=== PATIENT | female | born 1945 | race Caucasian/White ===

== ENCOUNTER → 2023-09-02 06:24 | Day surgery (SDC) | payer OTHER, SELFPAY | LOC: GI 06:24 | PROVIDERS: ATTENDING PHYSICIAN Internal Medicine Gastroenterology; FAMILY PHYSICIAN Family Medicine | DX: D50.0 Iron deficiency anemia secondary to blood loss (chronic) (principal); K57.30 Diverticulosis of large intestine without perforation or abscess without bleeding; K64.0 First degree hemorrhoids; R12 Heartburn; K44.9 Diaphragmatic hernia without obstruction or gangrene; K31.7 Polyp of stomach and duodenum; K22.2 Esophageal obstruction; K31.89 Other diseases of stomach and duodenum; K29.50 Unspecified chronic gastritis without bleeding | CPT/HCPCS: 45378; 43239; 88305; 88342 ==

== ENCOUNTER → 2023-10-04 10:50 | Outpatient (REF) | payer OTHER, SELFPAY | LOC: RAD 10:50 | PROVIDERS: ATTENDING PHYSICIAN Family Medicine | DX: Z13.820 Encounter for screening for osteoporosis (principal); M85.89 Other specified disorders of bone density and structure, multiple sites; Z78.0 Asymptomatic menopausal state | CPT/HCPCS: 77080 ==

== ENCOUNTER → 2023-11-15 13:19 | Outpatient (REF) | payer OTHER, SELFPAY | LOC: RAD 13:19 | PROVIDERS: ATTENDING PHYSICIAN Family Medicine | DX: J45.40 Moderate persistent asthma, uncomplicated (principal); J45.901 Unspecified asthma with (acute) exacerbation | CPT/HCPCS: 71046 ==

== ENCOUNTER 2023-12-02 11:17 | Outpatient (RCR) | payer OTHER, SELFPAY | END 2023-12-02 23:59 | disposition home or self-care (01) | LOC: RPT 11:17 | PROVIDERS: ATTENDING PHYSICIAN Surgery; FAMILY PHYSICIAN Family Medicine | DX: I97.2 Postmastectomy lymphedema syndrome (principal); D05.92 Unspecified type of carcinoma in situ of left breast; L90.5 Scar conditions and fibrosis of skin | CPT/HCPCS: 97110; 97140; 97162; 97535 ==

== ENCOUNTER → 2023-12-12 10:19 | Outpatient (REF) | payer OTHER, SELFPAY | LOC: RAD 10:19 | PROVIDERS: ATTENDING PHYSICIAN Physician Assistant; FAMILY PHYSICIAN Family Medicine | DX: R05.9 Cough, unspecified (principal) | CPT/HCPCS: 71250 ==

== ENCOUNTER 2023-12-25 11:55 | Outpatient (RCR) | payer OTHER, SELFPAY | END 2023-12-25 23:59 | disposition home or self-care (01) | LOC: RPT 11:55 | PROVIDERS: ATTENDING PHYSICIAN Surgery; FAMILY PHYSICIAN Family Medicine | DX: D05.92 Unspecified type of carcinoma in situ of left breast (principal); Z73.6 Limitation of activities due to disability; L90.5 Scar conditions and fibrosis of skin | CPT/HCPCS: 97110; 97140; 97535 ==

== ENCOUNTER 2024-01-09 12:01 | Outpatient (RCR) | payer OTHER, SELFPAY | END 2024-01-09 23:59 | disposition home or self-care (01) | LOC: RPT 12:01 | PROVIDERS: ATTENDING PHYSICIAN Surgery; FAMILY PHYSICIAN Family Medicine | DX: I97.2 Postmastectomy lymphedema syndrome (principal); D05.92 Unspecified type of carcinoma in situ of left breast; Z73.6 Limitation of activities due to disability; L90.5 Scar conditions and fibrosis of skin | CPT/HCPCS: 97110; 97140 ==

== ENCOUNTER 2024-01-14 02:54 | Inpatient (IN) | payer OTHER, SELFPAY ==
[2024-01-13 19:20] VITALS: BP 171/92
[2024-01-13 19:42] LABS: % Basophils 1.4 % (0-2); % Eosinophils 2.4 % (0-6); % Immature Granulocytes 0.4 % (0-0.5); % Lymphocytes 22.8 % (20.5-51.1); % Monocytes 8.4 % (1.7-9.3); % Neutrophils 64.6 % (42.2-75.2); Absolute Basophils 0.1 10^3/uL (0-0.2); Absolute Eosinophils 0.2 10^3/uL (0-0.7); Absolute Lymphocytes 1.8 10^3/uL (1.2-3.4); Absolute Monocytes 0.7 10^3/uL (0.1-0.6); Absolute Neutrophils 5.2 10^3/uL (1.4-6.5); Hematocrit 39.4 % (37.0-47.0); Hemoglobin 12.6 g/dL (12.0-16.0); Mean Corpuscular Hgb 28.9 pg (27.0-31.0); Mean Corpuscular Volume 90.4 fL (81.0-99.0); Mean Platelet Volume 8.9 fL (7.4-10.4); Nucleated Red Blood Cells % 0 %; Platelet Count 256 10^3/uL (130-400); Red Blood Cell Count 4.36 10^6/uL (4.20-5.40); Red Cell Dist. Width 15.2 % (11.5-14.5)
[2024-01-13 19:53] LABS: ALT (SGPT) 22 U/L (0-35); AST (SGOT) 35 U/L (14-36); Albumin 4.4 g/dl (3.5-5.0); Alkaline Phosphatase 82 U/L (38-126); Blood Urea Nitrogen 13 mg/dl (7-17); Calcium 9.7 mg/dl (8.4-10.2); Carbon Dioxide 28 mmol/L (22-30); Chloride 104 mmol/L (98-107); Glucose 102 mg/dl (70-99); Potassium 4.3 mmol/L (3.5-5.1); Sodium 139 mmol/L (135-145); Total Bilirubin 0.4 mg/dl (0.2-1.3); Total Protein 6.9 g/dl (6.3-8.2); eGFR > 60.00
[2024-01-13 20:04] LABS: NT-proBNP 95.6 pg/ml; Troponin I < 0.012 ng/ml
[2024-01-13 21:00] VITALS: BP 141/77
--- NOTE | 2024-01-13 22:26 | ED.GENMED ---
History of Present Illness
General
Chief Complaint: Breathing Problem
Source: patient
Exam Limitations: none
Time Seen by Provider: 01/13/24 22:14
Nursing documentation reviewed up to this point in time: agreed with
History of Present Illness
History of Present Illness:
78-year-old female with a past medical history of asthma, hyperlipidemia, SVT status post ablation, GERD and hiatal hernia, prior history of breast cancer who presents to the emergency department for evaluation of leg swelling. Patient reports
onset of symptoms about a week ago and have been persistent since that time although she says today slightly better than they have been recently. While her legs are swollen she denies any pain in the legs and has not noticed any redness. She says
that she called her primary doctor to be evaluated for this issue and was referred to the ER to be evaluated instead. In addition to bilateral leg swelling she says that she feels she is more short of breath than usual over the past week�she
reports that she feels winded with exertion. She has a chronic cough she says no worse than usual. She denies any chest pain. She denies any GI issues aside from her chronic GERD. She denies any fevers or chills.
Past History
Past History
ED Past Medical History: Asthma, Cancer and Other (Asthma, GERD, lumbar radiculitis)
ED Past Surgical History: Other (lumpectomy)
Patient has exhibited threatening behavior?: No
PSI?: No
Social History
Tobacco: Non-smoker
Alcohol: Occasional
Personal:
Living: with family
Family History
Family History: Negative Diabetes, Hypertension or CAD
Review of Systems
Review of Systems
All Other Systems: ROS reviewed and negative except as documented in HPI and ROS
Constitutional: Reports fatigue; Denies fever or chills
Respiratory: Reports cough and trouble breathing
Cardiac: Denies chest pain or palpitations
ABD/GI: Denies abdominal pain, nausea, vomiting or diarrhea
: Denies flank pain
Musculoskeletal: Reports edema; Denies muscle pain, muscle stiffness, neck pain or back pain
Neurological: Denies dizzy or headache
Phy Exam
Physical Exam
Physical Exam:
General: Awake, alert, oriented x3; no acute distress
Head: Normocephalic, atraumatic
Eyes: Conjunctiva normal
Throat: Airway intact, handling secretions
Neck: Trachea midline, no JVD
Lungs: Faint scattered wheezing and occasional cough; normal pulse ox on room air, normal respiratory rate
Heart: Regular rate and rhythm, no murmurs, gallops, or rubs appreciated
Abd: Soft, non distended, nontender
Neuro: No gross deficits
Skin: no rash
Extremities: Patient has +1 edema in the lower extremities bilaterally, no erythema or warmth of the extremities, no calf tenderness or palpable cords; good pulses in all extremities
Scores
Heart Failure Risk
Heart Failure Risk Score: Not Applicable
Heart Score for Chest Pain Patients
STEMI patient?: Not applicable
Withdrawal Assessment of Alcohol
Withdrawal Assessment Completed?: Not applicable
Course
Orders/Labs/Results
Orders:
Orders
01/13/24 19:23
ECG [Electrocardiogram (*1)] Urgent
Reason for Study: Shortness of Breath
Other Reason for Exam: pedal edema
01/13/24 19:24
EKG- Treatment ONCE
01/13/24 19:27
Complete Blood Count/With Diff Urgent
Comprehensive Metabolic Panel Urgent
NT-proBNP Urgent
Troponin I Urgent
01/13/24 22:25
US Periph Venous LOWER Ext Alberto Urgent
Comment:
Reason For Exam: b/l leg swelling x 1 week
01/13/24 22:26
CR Chest - 2 Views Urgent
Comment:
Reason For Exam: sob
01/14/24 01:03
Furosemide [Lasix] 40 mg PO NOW STA
Abnormal Lab Results
01/13/24
19:27
MCHC 32.0 L g/dL
(33.0-37.0)
RDW 15.2 H %
(11.5-14.5)
Absolute Monos (auto) 0.7 H 10^3/uL
(0.1-0.6)
Glucose 102 H mg/dl
(70-99)
01/13/24 19:27
01/13/24 19:27
Vital Signs
Initial and Last Documented VS:
Initial Vital Signs
Temp Pulse Resp BP Pulse Ox
36.5 C 76 16 171/92 92
01/13/24 19:20 01/13/24 19:20 01/13/24 19:20 01/13/24 19:20 01/13/24 19:20
Last Documented Vital Signs
Temp Pulse Resp BP Pulse Ox
36.5 C 80 16 136/75 91
01/13/24 19:20 01/14/24 01:11 01/13/24 23:00 01/14/24 01:11 01/13/24 23:00
MDM/Problems Addressed
Differential Diagnosis Includes:
CHF, DVT, dependent edema
MDM/Problems Addressed:
78-year-old female presents to the emergency room for evaluation of bilateral leg swelling for the past week; she also noticed some mild increase shortness of breath over that period. Referred by PCP for evaluation. She was quite hypertensive in
triage but her blood pressure has normalized by my assessment. Low normal pulse ox, borderline respiratory rate. Rest of vitals normal. Physical exam as above. Clinically at least, concern for CHF. She had lab work sent in triage including a
CBC and a CMP which were unremarkable. She had a troponin and a BNP sent�troponin undetectable and BNP normal. EKG shows sinus rhythm no acute ischemic changes, no LVH. Will add chest x-ray as well as a lower extremity ultrasound to rule out DVT.
Will monitor on telemetry and reassess after the above.
DVT study was negative. Chest x-ray reviewed by me shows increased pulmonary vascular congestion and mild edema�symptomatology and exam seem consistent with CHF. New diagnosis. Clinical reassessment: BP normal at 136/75, pulse ox 91%, respiratory
rate 22. Will admit for continued workup, treat with IV Lasix. Has seen [facility] for cardiology in the past (for SVT and ablation). Discussed case with hospitalist.
Acute Exacerbation and/or Progression of Chronic Illness:
Acutely hypertensive which resolved without intervention; continue to monitor but no emergent antihypertensive treatment is indicated at present
Acute Exacerbation and/or Progression of Chronic Illness: HTN
*Radiology
Radiology exam reviewed: radiology read reviewed
*Pulse Oximetry
Patient hypoxic: no
*EKG
Interpreted by ED Provider?: Yes
Heart Rate: 71
Rate: normal
Rhythm: sinus
[place]: normal axis
Interval: normal interval
QRS Pattern: normal QRS
Ischemia: no ischemia
*Critical Care Note
Total Time (30-74mins, 75-104mins- exclusive of procedures): Not Applicable
Data Reviewed
Review of Other/Old Records Reveals: Labs and Records
Source: patient and records
Patient Management
Discussion with other providers: Hospitalist (Discussed with hospitalist)
Escalation/DeEscalation of care consider admission/obs:
Admission indicated
ED Attending Note
-
Portions of this chart may have been created with voice recognition software.� Occasional wrong word or��sound alike� substitutions may have occurred due to the inherent limitations of voice recognition software.
Discharge Plan
Departure
Patient Disposition: Admit
Date of Disposition: 01/14/24
Time of Disposition: 01:14
Admit to doctor: Moo
Presentation/result/management discussed w/ accepting MD/DO: Hospitalist
Discharge Problem:
CHF (congestive heart failure)
Prescriptions:
No Action
fluticasone propionate 1 SPRAY spray,suspension
2 spray intranasal DAILY
Patient Comments:
2 sprays each nostril
Centrum Silver 1 EACH tablet
1 ea PO DAILY
albuterol sulfate 1 PUFF HFA aerosol inhaler
2 puff inhalation Q4HPRN PRN (Reason: SOB)
azelastine 1 SPRAY aerosol,spray
2 spray intranasal BID
Patient Comments:
2 sprays each nostril
anastrozole 1 mg Tablet
1 mg PO QPM
famotidine 40 mg Tablet
40 mg PO HS
pantoprazole [Protonix] 40 mg Tablet,Delayed Release (Dr/Ec)
40 mg PO DAILY
montelukast 10 mg Tablet
10 mg PO QPM
rosuvastatin 5 mg Tablet
5 mg PO QPM
Trelegy Ellipta 200-62.5-25 mcg Blister With Device
1 inh INHALATION QPM
Cbd
2,500 mg PO TIDPRN PRN (Reason: pain)
cholecalciferol (vitamin D3) [Vitamin D3] 25 mcg (1,000 unit) Tablet
25 mcg PO DAILY
levocetirizine 5 mg Tablet
5 mg PO QPM
Saccharomyces boulardii [Florastor] 250 mg Capsule
250 mg PO DAILY
mupirocin 2 % ointment
1 applic intranasal BID Qty: 1 0RF
Rx Instructions:
Has from previous.
aspirin 325 mg Tablet
325 mg PO DAILY Qty: 30 0RF
Rx Instructions:
Take daily x4 weeks for blood clot prevention.
celecoxib 200 mg Capsule
200 mg PO DAILY Qty: 30 0RF
Rx Instructions:
Take with food.
DO NOT take within 2 hours of Aspirin post-surgery.
docusate sodium 100 mg Capsule
100 mg PO BID Qty: 30 0RF
dexamethasone 4 mg Tablet
4 mg PO Q12 Qty: 5 0RF
Rx Instructions:
Restart night of discharge and continue every 12 hours until finished.
Take with food.
lidocaine 4 % Adhesive Patch,Medicated
2 patch topical DAILY Qty: 30 0RF
Rx Instructions:
Over the counter. 12 hours on, 12 hours off.
Apply to sides of right hip. DO NOT place over incision.
magnesium hydroxide 400 mg/5 mL Suspension
30 ml PO DAILYPRN PRN (Reason: constipation) Qty: 355 0RF
Rx Instructions:
Add to bowel regimen of Colace and Senna if no bowel movement occurs within 2 days post-surgery.
sennosides [Senna Laxative] 8.6 mg Tablet
17.2 mg PO BID Qty: 30 0RF
ondansetron HCl 4 mg tablet
4 mg PO Q6H PRN (Reason: nausea and vomiting) Qty: 20 0RF
Rx Instructions:
Take 1/2 hour prior to Tramadol if experiencing recurrent nausea.
tramadol 50 mg tablet
50 mg PO Q6H PRN (Reason: moderate-severe pain) Qty: 30 0RF
Rx Instructions:
1 tab for moderate pain, 2 if severe.
Dx total joint. Ongoing therapy.
diazepam [Valium] 2 mg tablet
2 mg PO HS PRN (Reason: insomnia) Qty: 10 0RF
Rx Instructions:
Caution with Tramadol - can cause drowsiness.
Take only as needed/as directed.
acetaminophen 650 mg Tablet Extended Release
650 mg PO Q4HWA Qty: 60 0RF
Rx Instructions:
DO NOT exceed >4000 mg daily.
Referrals:
Sangeetha Brunner DO [Family Provider] -
Interventions
Interventions:
*Risk Screen - Suicide Last Done: 01/13/24 22:55
*General Assessment Last Done: 01/13/24 22:55
*Neglect/Abuse Screening Last Done: 01/13/24 22:55
ED- Fall Risk Assessment Last Done: 01/13/24 22:55
*ED COVID-19 Vaccine History Last Done: 01/13/24 22:55
ED- Cardiac Assessment Last Done: 01/13/24 22:55
ED- Pulmonary Assessment Last Done: 01/13/24 22:55
ED-Skin Assessment Last Done: 01/13/24 22:55
Discharge Date and Time
Print Language: MAORI
[2024-01-13 22:54] VITALS: BP 141/73
[2024-01-13 23:03] VITALS: BMI 28.3
[2024-01-14] VITALS (11 sets, daily range): BP systolic 104–150; BP diastolic 49–83; PULSE 84; O2SAT 92; BMI 27.7; BMI 27.6
[2024-01-14] MEDS: LASIX 40 MG PO (01:11)
--- NOTE | 2024-01-14 02:22 | HPS.HSE ---
Family Physician
-
Family Physician: Sangeetha Brunner
Chief Complaint
-
Cough, SOB, LE swelling
History of Present Illness
Patient is an 78y F with PMH significant for asthma, GERD, chronic cough and prior breast cancer who presents to ED complaining of worsening cough, SOB and new LE swelling over the past week. Patient notes that she has had a chronic cough x
years. She is followed by Asthma / Immunology regarding her asthma and by her PCP. She recently saw Pulmonary and a CT scan was ordered but has not yet returned to the office for review of those results. Patient states that over the past week she
has noticed swelling in her ankles which is quite unusual for her. She has gained about 5 lbs in the past month. Patient states that she has started to become SOB with climbing stairs - which is also unusual for her.
Patient denies any recent medication changes.
She denies fevers / chills, chest pain, palpitations, etc.
Patient notes that her chronic cough is typically productive of green - yellow mucus. She has paroxysms of cough that occasionally wake her at night and tend to be triggered by deep breathing, talking, laughing, etc.
Medical History
Past Medical History
Past Medical History: Reports Other
Additional Past Medical History:
Asthma / Allergies
GERD / Hiatal Hernia
Breast Cancer s/p Lumpectomy, Chemo and XRT
Skin Cancer
Polycystic Liver Disease
SVT s/p Ablation
Anxiety / Depression
Past Surgical History: Reports Other
Additional Past Surgical History:
Left TKA
Right ANNIKA
Left Lumpectomy
SVT Ablation
Cataracts
Social History
Tobacco: Former Smoker (Quit smoking in 1974. Approx 10 pack years total.)
Alcohol: None
Drug: None
Family History
Family History: Not pertinent
Allergies / Home Medications
Allergies reflects when Allergies were last updated in [facility].
Home Medications with original date entered in [facility]
Allergy/Medication List:
Allergies
Allergy/AdvReac Type Severity Reaction Status Date / Time
pollen extracts Allergy Intermediate SEASONAL Verified 01/13/24 19:23
ALLERGIES
Cats and dogs Allergy shortness Uncoded 01/13/24 19:23
of breath,
wheezing
Oxycodone AdvReac Severe nausea/vomi Uncoded 01/13/24 19:23
ting
Home Medications
fluticasone propionate 50 mcg/actuation nasal spray,suspension 2 spray intranasal DAILY 09/18/11
hxkkrphr-[id number] acid 0.4 mg-lycopene 300 mcg-lutein 250 mcg tablet (Centrum Silver) 1 ea PO DAILY 09/18/11
albuterol sulfate 90 mcg/actuation aerosol inhaler 2 puff inhalation Q4HPRN PRN SOB 01/13/16
azelastine 137 mcg (0.1 %) nasal spray 2 spray intranasal BID 01/13/16
anastrozole 1 mg tablet 1 mg PO DAILY 06/26/22
famotidine 40 mg tablet 40 mg PO HS 06/26/22
fluticasone fur. 200 mcg-umeclid 62.5 mcg-vilant 25 mcg inhalat.powder (Trelegy Ellipta) 1 inh inhalation QPM 06/26/22
montelukast 10 mg tablet 10 mg PO QPM 06/26/22
rosuvastatin 5 mg tablet 5 mg PO DAILY 06/26/22
cholecalciferol (vitamin D3) 25 mcg (1,000 unit) tablet (Vitamin D3) 25 mcg PO DAILY 07/16/22
Saccharomyces boulardii 250 mg capsule (Florastor) 250 mg PO DAILY 09/24/22
levocetirizine 5 mg tablet 5 mg PO QPM 09/24/22
acetaminophen 650 mg tablet,extended release 650 mg PO Q4HWA #60 tabs 10/16/22
docusate sodium 100 mg capsule 100 mg PO BID #30 caps 10/16/22
Saccharomyces boulardii 250 mg capsule (Florastor) 250 mg PO DAILY 01/14/24
biotin 1 mg capsule 1 mg PO DAILY 01/14/24
cholecalciferol (vitamin D3) 25 mcg (1,000 unit) tablet (Vitamin D3) 25 mcg PO DAILY 01/14/24
iron 50 mg iron tablet 1 tab PO DAILY 01/14/24
lansoprazole 30 mg capsule,delayed release 30 mg PO DAILY 01/14/24
lithium carbonate 300 mg tablet 300 mg PO BID 01/14/24
melatonin 3 mg tablet 3 mg PO HS 01/14/24
paroxetine HCl 10 mg tablet (Paxil) 10 mg PO DAILY 01/14/24
quetiapine 25 mg tablet 25 mg PO HS 01/14/24
quetiapine 50 mg tablet 50 mg PO HS 01/14/24
Review of Systems
-
History Source: Patient
A 12 point ROS was completed and negative except as noted: Yes
Constitutional: Reports Weight Gain and Fatigue; Denies Fever or Chills
EENT: Denies Sore Throat
Respiratory: Reports Cough and Trouble Breathing; Denies Hemoptysis
Cardiac: Denies Chest Pain or Palpitations
Abdomen/GI: Denies Abdominal Pain, Nausea, Vomiting or Diarrhea
: Denies Dysuria, Frequency or Flank Pain
Musculoskeletal: Reports Edema; Denies Joint Pain
Neurological: Reports Headache; Denies Dizzy
Psych: Denies Depression or Anxiety
Physical Exam
Vital Signs
Vital Signs
Temp Pulse Resp BP Pulse Ox
97.7 F 80 16 136/75 91
01/13/24 19:20 01/14/24 01:11 01/13/24 23:00 01/14/24 01:11 01/13/24 23:00
Physical Exam
General: Other (78y F in no acute distress.)
HEENT: Moist mucous membranes, PERRLA and Other (Neck supple.)
Respiratory: Other (Bibasilar rales. Pos cough paroxysms with deep inspiration.)
Cardiac: S1/S2 and Regular Rhythm; No Murmur
GI: Soft, Non Tender, Non Distended and Normal Bowel Sounds
Musculoskeletal: No Clubbing, No Cyanosis and Other (Trace pedal edema. )
Skin: Other (Scattered circular skin lesions diffusely over the arms and legs - patient states these are 'precancerous' lesions followed by Derm.)
Neuro: AO x 3
Laboratory Results
-
01/13/24 19:
01/13/24:
Laboratory Results
Total Bilirubin 0.4 mg/dl (0.2-1.3) 01/13/24:
AST 35 U/L (14-36) 01/13/24:
ALT 22 U/L (0-35) 01/13/24:
Alkaline Phosphatase 82 U/L (38-126) 01/13/24:
Troponin I < 0.012 ng/ml 01/13/24:
Impression/Plan
-
A/P: Patient is an 78y F with PMH significant for asthma, chronic cough, GERD and hiatal hernia who presents to ED complaining of new SOB and LE edema over the past week.
Acute CHF - Likely HFpEF
- Admit for further evaluation and treatment.
- Patient presents with new dyspnea, mild hypoxemia, LE edema and weight gain over the past week.
- Symptoms seem c/w CHF - I suspect due to underlying primary lung disease (see below).
- IV Lasix given in the ED - follow for effect.
- Check Echo for further evaluation.
- Follow I/Os, daily weights, etc.
- Address underlying lung disease as noted below.
Bronchiectasis / Chronic Cough
- Chronic cough x years and recent increase in symptoms.
- CT scan done 12/12/23 shows [id number] formations, ground glass opacities, etc consistent with inflammatory or atypical infectious process (TRACEE, etc).
- Pulmonary evaluation for additional recommendations.
- Check sputum AFB if able.
- Continue nebs / mucolytics / etc.
Asthma / Environmental Allergies
- No significant wheezing appreciated on exam.
- Suspicious for underlying chronic infectious or inflammatory process as noted above.
- Continue inhaled medications.
History of Breast Cancer
- s/p lumpectomy as well as adjuvant chemo and XRT.
- ? degree of chronic lung issues related to XRT treatments.
- Continue anastrazole.
GERD / Hiatal Hernia
- Stable. Continue acid suppression regimen.
- Speech eval to rule out chronic / silent aspiration.
Anxiety / Depression
- Stable. Continue current medications.
DVT Prophylaxis: Lovenox
Code Status: Full
[2024-01-14 06:21] LABS: Hematocrit 38.2 % (37.0-47.0); Hemoglobin 12.4 g/dL (12.0-16.0); Mean Corp Hgb Conc. 32.5 g/dL (33.0-37.0); Mean Corpuscular Volume 89.5 fL (81.0-99.0); Mean Platelet Volume 8.9 fL (7.4-10.4); Platelet Count 249 10^3/uL (130-400); Red Blood Cell Count 4.27 10^6/uL (4.20-5.40); Red Cell Dist. Width 15.5 % (11.5-14.5)
[2024-01-14 06:50] LABS: Blood Urea Nitrogen 12 mg/dl (7-17); Calcium 9.6 mg/dl (8.4-10.2); Carbon Dioxide 25 mmol/L (22-30); Chloride 105 mmol/L (98-107); Estimated Creatinine Clearance 79 ml/min; Glucose 114 mg/dl (70-99); Sodium 142 mmol/L (135-145); eGFR > 60.00
[2024-01-14] MEDS: SYMBICORT 160/4.5 MCG INHALER 2 PUFF INH ×2 (07:17→19:47)
[2024-01-14] MEDS: SPIRIVA RESPIMAT 2.5 MCG 2 PUFF INH (07:17)
[2024-01-14] MEDS: VENTOLIN NEBULES 2.5 MG INH ×4 (07:18→19:47)
[2024-01-14] MEDS: PAXIL 10 MG PO (07:48)
[2024-01-14] MEDS: ARIMIDEX 1 MG PO (07:48)
[2024-01-14] MEDS: ESKALITH REGULAR RELEASE 300 MG PO ×2 (07:48→21:37)
[2024-01-14] MEDS: CRESTOR 5 MG PO (07:48)
[2024-01-14] MEDS: PROTONIX 40 MG PO (07:48)
[2024-01-14] MEDS: TYLENOL 650 MG PO ×2 (07:53→12:21)
--- NOTE | 2024-01-14 09:38 | CON.PUL ---
Consultation
Consultation Request
Date/Time Consultation Requested: 01/14/2024-9 AM
Date/Time Consultation Performed: 01/14/2024-9:30 AM
Requesting Provider: Hospitalist
Performing Provider: Dr. Kumar
Reason for Consultation: Shortness of breath and cough
Medical History
-
Chief Complaint: Shortness of breath and cough
History of Present Illness:
78-year-old female patient with long history of asthma, 02-crvi-avbd smoking history quit 50 years ago, GERD, chronic cough and prior breast cancer who presented with increasing cough, shortness of breath and increased lower extremity swelling felt
to have some CHF and bronchitis-pulmonary consulted for mucus production and shortness of breath 01/14/2024.. The patient states that her shortness of breath has improved with diuresis. Her leg swelling is improved. Nebulizers have helped her
wheezing. She has less cough. She has chronic mucus production of dark yellow and occasionally green sputum production. She did not complain of fevers, chills or night sweats. She did not complain any chest pain, pleurisy, hemoptysis, abdominal
pain, and admits to significant leg swelling which is improved as well. She also has allergies and mild postnasal drip.
Past Medical History
Past Medical History: None (Asthma. Allergies. GERD. Hiatal hernia. Skin cancer. Polycystic liver. SVT status post ablation. Anxiety. Depression. Breast cancer-lumpectomy/chemo/XRT. Left TKA. Right ANNIKA. Cataract.)
Social History
Tobacco: Former Smoker ([id number]-velh quit 1974)
Alcohol: None
Drug: None
Living: With Family
Occupational Exposures: No known asbestos exposure
Environmental Exposures: No known tuberculosis exposure
Family History
Family History: Other (Mother-COPD. Father-lung cancer)
Allergies / Home Medications
Allergies
Allergy/AdvReac Type Severity Reaction Status Date / Time
pollen extracts Allergy Intermediate SEASONAL Verified 01/13/24 19:23
ALLERGIES
Cats and dogs Allergy shortness Uncoded 01/13/24 19:23
of breath,
wheezing
Oxycodone AdvReac Severe nausea/vomi Uncoded 01/13/24 19:23
ting
Home Medications
�Medication �Instructions �Recorded �Confirmed �Last Taken �Type
fluticasone propionate 50 2 spray intranasal DAILY 09/18/11 01/14/24 10/14/22 20:00 History
mcg/actuation nasal
spray,suspension
ndlwnnqz-ulr-gumer acid 0.4 1 ea PO DAILY 09/18/11 01/14/24 10/10/22 History
mg-lycopene 300 mcg-lutein 250 mcg
tablet (Centrum Silver)
albuterol sulfate 90 mcg/actuation 2 puff inhalation Q4HPRN PRN SOB 01/13/16 01/14/24 07/15/22 17:00 History
aerosol inhaler
azelastine 137 mcg (0.1 %) nasal 2 spray intranasal BID 01/13/16 01/14/24 10/14/22 20:00 History
spray
anastrozole 1 mg tablet 1 mg PO DAILY 06/26/22 01/14/24 10/14/22 20:00 History
famotidine 40 mg tablet 40 mg PO HS 06/26/22 01/14/24 10/14/22 18:00 History
fluticasone fur. 200 mcg-umeclid 1 inh inhalation QPM 06/26/22 01/14/24 10/14/22 20:00 History
62.5 mcg-vilant 25 mcg
inhalat.powder (Trelegy Ellipta)
montelukast 10 mg tablet 10 mg PO QPM 06/26/22 01/14/24 10/14/22 20:00 History
rosuvastatin 5 mg tablet 5 mg PO DAILY 06/26/22 01/14/24 10/14/22 20:00 History
cholecalciferol (vitamin D3) 25 25 mcg PO DAILY 07/16/22 01/14/24 10/08/22 History
mcg (1,000 unit) tablet (Vitamin
D3)
Saccharomyces boulardii 250 mg 250 mg PO DAILY 09/24/22 01/14/24 10/14/22 09:00 History
capsule (Florastor)
levocetirizine 5 mg tablet 5 mg PO QPM 09/24/22 01/14/24 10/14/22 07:00 History
acetaminophen 650 mg 650 mg PO Q4HWA #60 tabs 10/16/22 01/14/24 10/13/22 Rx
tablet,extended release
docusate sodium 100 mg capsule 100 mg PO BID #30 caps 10/16/22 01/14/24 Unknown Rx
Saccharomyces boulardii 250 mg 250 mg PO DAILY 01/14/24 01/14/24 Unknown History
capsule (Florastor)
biotin 1 mg capsule 1 mg PO DAILY 01/14/24 01/14/24 Unknown History
cholecalciferol (vitamin D3) 25 25 mcg PO DAILY 01/14/24 01/14/24 Unknown History
mcg (1,000 unit) tablet (Vitamin
D3)
iron 50 mg iron tablet 1 tab PO DAILY 01/14/24 01/14/24 Unknown History
lansoprazole 30 mg capsule,delayed 30 mg PO DAILY 01/14/24 01/14/24 Unknown History
release
lithium carbonate 300 mg tablet 300 mg PO BID 01/14/24 01/14/24 Unknown History
melatonin 3 mg tablet 3 mg PO HS 01/14/24 01/14/24 Unknown History
paroxetine HCl 10 mg tablet (Paxil) 10 mg PO DAILY 01/14/24 01/14/24 Unknown History
quetiapine 25 mg tablet 25 mg PO HS 01/14/24 01/14/24 Unknown History
quetiapine 50 mg tablet 50 mg PO HS 01/14/24 01/14/24 Unknown History
Review of Systems
-
Unable to Obtain full review of systems at this time due to: Other (Per HPI)
Vitals / Labs / Diagnostic Testing
Vital Signs
Temp Pulse Resp BP Pulse Ox
98.7 F 91 20 135/81 97
01/14/24 07:15 01/14/24 07:24 01/14/24 07:24 01/14/24 07:15 01/14/24 07:24
Lab Data
01/14/24 05:47
01/14/24 05:47
Diagnostic Testing:
Physical Exam
-
Exam:
Well-nourished and well-developed in no apparent distress
HEENT-atraumatic, normocephalic
Neck-supple, no JVD, no bruit
Heart-regular rate and rhythm-no murmurs, rubs or gallops
Chest with diminished breath sounds, prolonged expiratory time, forced expiratory wheezes, rare crackles left greater than right base
Back without tenderness
Abdomen-soft, nontender, nondistended, no hepatosplenomegaly
Extremities-no cyanosis, clubbing, edema and good peripheral pulses
Integument-intact, no rashes, lesions or ecchymosis
Neurology-alert and oriented, nonfocal motor and sensory exam
Assessment
-
78-year-old female patient with long history of asthma, 94-pfyk-esbf smoking history quit 50 years ago, GERD, chronic cough and prior breast cancer who presented with increasing cough, shortness of breath and increased lower extremity swelling felt
to have some CHF and bronchitis-pulmonary consulted for mucus production and shortness of breath 01/14/2024.
CHF with preserved EF
Chronic cough/chronic bronchitis/bronchiectasis
Asthma-suspect moderate persistent with mild acute exacerbation
Abnormal CT akthk-npnd-tm-bud-consistent with atypical mycobacterial infection
Bronchiectasis with mucoid impaction
Mild hyperglycemia
Conditions present prior to admission:
Asthma-moderate persistent, no significant eosinophil elevation
Allergies.
GERD.
Hiatal hernia.
Skin cancer.
Polycystic liver.
SVT status post ablation.
Anxiety.
Depression.
Breast cancer-lumpectomy/chemo/XRT-2017
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 Right ANNIKA. Cataract-2014
Family history COPD-mother
Family history lung cancer-father
Plan
Respiratory decompensation likely CHF on top of chronic bronchitis/bronchiectasis/asthma
Supplemental oxygen as needed
Assess discharge supplemental oxygen needs prior to discharge
Incentive spirometry
Mucolytic's
Nebulizers-DuoNebs
Symbicort and Spiriva continue-on Trelegy as an outpatient
Mucus clearing devices
Incentive spirometry
Flutter
Add vest therapy
Continue Singulair and Zyrtec
Observe off steroids-if increased wheezing will initiate
Obtain previous allergy testing
Will obtain baseline eosinophil level, IgE level, ESR, gammaglobulin levels
Consider Biologics such as IL-5 inhibitors or IL/13 inhibitor in the outpatient setting if recurrent exacerbations requiring prednisone-reviewed with patient
Check sputum culture-including AFB and fungal
Currently observe off antibiotics-no leukocytosis, temperature, night sweats
Will strongly consider antibiotics based on culture results with bronchiectasis and suspected TRACEE
Eventually consider infectious disease consultation depending on culture results
Diuresis as tolerated
Diuresis note
Echocardiogram
Troponin negative
Consider cardiology evaluation
Monitor blood sugar
Insulin supplementation as needed
DVT prophylaxis-on Lovenox
GI prophylaxis-on pantoprazole and famotidine
Nutrition
Early mobilization
Patient had been following with Dr. River-allergy and immunology and referred to pulmonary recently-ideally would obtain allergy records
Patient has appointment 03/29 at 3 PM with PFTs-Dr. Loren Camacho
Diagnostic data:
Chest x-ray 04/15/2017-use right subclavian port, no pneumothorax, biapical scarring
Chest x-ray 02/04/2020-NAD
Chest x-ray 10/18/2021-NAD
CXR 11/15/2023: No acute disease. Moderate hiatal hernia, enlarged.
Chest x-ray 01/13/2024-NAD, moderate-sized hiatal hernia
CT chest 12/12/20239897-wwbw-up-bud opacifications throughout bilateral lungs with bibasilar bronchiectasis and mucoid impactions, apparent right subclavian artery and retroesophageal course and mild dilation of proximal subclavian artery, 2.8 cm
low-density lesion right thyroid lobe, moderate hiatal hernia
Lower extremity ultrasound 01/13/2024-no evidence for DVT in lower extremities bilaterally
Echo 05/16/2022: Small LV size. Normal systolic function. EF 63%. Mild concentric LVH.� An incidental finding noted on the subcostal view is that of a large sonolucent mass in the liver that was noted on's CAT scan in 2019
[place] 12/04/23: FVC 1.55/57%, FEV1 1.13/56%, ratio 73%, no significant BD response.� Suggestive of moderate restrictive pattern.
Data Reviewed
-
PFT: Report reviewed by me
EKG: Report reviewed by me
Radiology: Image personally visualized and interpreted and Report reviewed by me
CT Scan: Image personally visualized and interpreted and Report reviewed by me
Ultrasound: Report reviewed by me
Medical Tests (Nuc Med, Echo etc): Report reviewed by me
Labs: Labs reviewed by me
Old Records: Reviewed
Total Time Spent with Patient (in minutes): 65
--- NOTE | 2024-01-14 10:33 | PTOTSP ---
pt currently requires supervision to no assistance to complete simple ADLs, functional transfers, ambulation. pt demonstrates no acute OT needs at this time, will sign off.
--- NOTE | 2024-01-14 11:16 | CM ---
CM met with pt bedside
Pt resides with her spouse in a 2SH with 2 ALE
18 steps up to 2nd floor with landing [facility]
Pt is independent with her ADLs
Utilizes a [employer] PRN at night
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
Very pleasant and active in the community and gnosticism
Denies financial insecurities
PCP- Sangeetha Brunner
Rx- [facility]
VN recommended
Pt declined
May want to consider outpt on dc
Active at [facility]
Plan to follow up with pt closer to dc on outpt therapy
Of note per chart review, 201 admission Dec 2022 to [facility]
Will need thorough PASRR screen if SNF ends up needed on dc
Discharge Disposition- home, anticipate with outpt PT
--- NOTE | 2024-01-14 11:19 | PTOTSP ---
Acute Care Evaluation
Pt currently presents with clinical symptoms of pharyngoesophageal dysphagia characterized by delayed coughing/throat clearing with ingestion of both solids and liquids. Additionally, pt reports: she takes her protonix 1 hour prior to meals in the
morning and her famotidine at night consistently; sleeps with head raised 90 degrees; aware of food/drink items as well as behaviors that exacerbate her symptoms; tries her best to adhere to recommendations provided by previous GI doctors; had a
test completed that consisted of a probe being placed through her nose to the back of her throat for a day when she had to notate her meal times (pH probe?) and the information obtained revealed that her coughing was related to her reflux; she feels
like her reflux is NOT well managed and that it has gotten worse; she is aware that her hiatal hernia has also increased in size; she sometimes coughs so hard that she coughs up undigested food.
Recommendations:
- Continue with REGULAR SOLIDS, THIN LIQUIDS, and MEDS TOLERATED.
- General aspiration precautions.
- Reflux precautions: HOB upright for all PO intake and for at LEAST an hour after PO intake; small bites/sips; chew food thoroughly; alternate solids/liquids; avoid caffeine; avoid acidic foods/drinks.
- Consider GI consult for under-managed/worsened reflux symptoms with a reportedly increase in the size of her hiatal hernia, all of which have been previously reported to correlate with her coughing, thus placing her at an increased risk for
retrograde aspiration.
- P[employer] to f/u re: GI recommendations and to reinforce education about behavioral changes/compensatory strategies to reduce GERD occurrences and continue to protect her airway.
[2024-01-14] MEDS: ROBITUSSIN 200 MG PO ×3 (12:21→21:38)
[2024-01-14] MEDS: COLACE 100 MG PO ×2 (12:21→21:37)
[2024-01-14] MEDS: SINGULAIR 10 MG PO (17:12)
[2024-01-14] MEDS: ZYRTEC 5 MG PO (17:12)
[2024-01-14] MEDS: LOVENOX 40 MG SC (17:12)
[2024-01-14] MEDS: SEROQUEL 25 MG PO (17:12)
--- NOTE | 2024-01-14 17:32 | W.PN.HOSP.TC ---
Today's Communication/Plan
-
see plan
Assessment / Plan
Assessment / Plan
Impression:
Patient is an 78y F with PMH significant for asthma, chronic cough, GERD and hiatal hernia who presents to ED complaining of new SOB and LE edema over the past week.
Subjective dyspnea likely multifactorial.
Lower extremity edema.
Bronchiectasis
Chronic cough.
Asthma
GERD with hiatal hernia possibly contributing to chronic cough given persistent reflux.
History of breast carcinoma.
Anxiety/depression
Plan
Subjective dyspnea likely multifactorial in the patient with bronchiectatic disease
Less likely CHF.
Does not of lower extremity edema, although overall compensated volume status.
Chest x-ray with clear lung molina.
Pro CHF BNP within normal limits.
Echocardiogram with preserved biventricular function and no significant valvular abnormalities.
Status post single dose of Lasix in the ED on 01/13
Hold further diuresis
Monitor volume status closely
Bronchiectasis
Recent CT scan 12/12/2023 shows tree-in-bud formations, groundglass opacities
Chronic cough likely function of severe GERD and hiatal hernia with reflux.
Pulmonary evaluation pending.
Check sputum for AFB.
Continue nebs, mucolytic's, Acapella
Outpatient pulmonology follow-up.
Speech and swallow evaluation appreciated.
Continue acid suppression
History of Breast Cancer
- s/p lumpectomy as well as adjuvant chemo and XRT.
- ? degree of chronic lung issues related to XRT treatments.
- Continue anastrazole.
Anxiety / Depression
- Stable. Continue current medications.
DVT Prophylaxis: Lovenox
Code Status: Full
Anticipated Discharge: 24 - 48 hours
Subjective/Interval History
-
Date of Service: January 14, 2024
Objective Data
-
Labs:
Laboratory Results
01/14/24
05:47
WBC 9.0
Hgb 12.4
Hct 38.2
Plt Count 249
Sodium 142
Potassium 4.0
Chloride 105
Carbon Dioxide 25
BUN 12
Creatinine 0.6
Glucose 114 H
Calcium 9.6
Vital Signs:
Vital Signs
Temp Pulse Resp BP Pulse Ox
98.2 F 99 18 147/82 95
01/14/24 15:15 01/14/24 15:15 01/14/24 15:15 01/14/24 15:15 01/14/24 15:15
I&O
01/13/24 01/14/24 01/15/24
06:59 06:59 06:59
Intake Total 240 / 240 900 / 900
Output Total 250 / 250
Balance -10 / -10 900 / 900
Physical Exam
-
General: Well Developed and No Apparent Distress
HEENT: Normocephalic, Atraumatic and Moist Mucous Membranes
Respiratory: Clear to Auscultation
Cardiac: Regular Rhythm and S1/S2; Negative Murmur, Rub or Gallop
GI: Soft, Nontender, Nondistended and Normal Bowel Sounds; Negative Organomegaly
Rectal: Deferred by Provider
Musculoskeletal: No Clubbing, No Cyanosis and No Edema
Skin: Negative Rash
Neuro: Nonfocal/Grossly Intact
[2024-01-14] MEDS: OCEAN, SALINE MIST 1 SPRAYS NASAL (21:36)
[2024-01-14] MEDS: MELATONIN 3 MG PO (21:37)
[2024-01-14] MEDS: PEPCID 40 MG PO (21:37)
[2024-01-14] MEDS: SEROQUEL 50 MG PO (21:38)
[2024-01-15 03:20] VITALS: BP 127/56
[2024-01-15 06:00] VITALS: BMI 27.5
[2024-01-15 07:14] LABS: IgG 852 mg/dl (700-1600); IgM 93 mg/dl (40-230)
[2024-01-15 07:27] VITALS: BP 111/64
[2024-01-15 07:38] VITALS: BMI 27.5
[2024-01-15] MEDS: VENTOLIN NEBULES 2.5 MG INH ×4 (07:51→19:18)
[2024-01-15] MEDS: SPIRIVA RESPIMAT 2.5 MCG 2 PUFF INH (07:52)
[2024-01-15] MEDS: SYMBICORT 160/4.5 MCG INHALER 2 PUFF INH ×2 (07:52→19:18)
[2024-01-15 07:58] LABS: Erythrocyte Sed Rate 48 mm/hour (0-20)
--- NOTE | 2024-01-15 09:20 | W.PN.PUL.V3 ---
Today's Communication / Plan
-
Add intravenous Decadron-fairly rapid conversion to prednisone with taper
Check sputum cultures
Home nebulizers
Mucus clearing devices and mucolytic's
Assessment
-
78-year-old female patient with long history of asthma, 51-vkdj-fwnj smoking history quit 50 years ago, GERD, chronic cough and prior breast cancer who presented with increasing cough, shortness of breath and increased lower extremity swelling felt
to have some CHF and bronchitis-pulmonary consulted for mucus production and shortness of breath 01/14/2024.
Chronic cough/chronic bronchitis/bronchiectasis
Asthma-suspect moderate persistent with mild acute exacerbation
Abnormal CT nktai-mvvh-fn-bud-consistent with atypical mycobacterial infection
CHF with preserved EF-mild
Bronchiectasis with mucoid impaction
Mild hyperglycemia
Conditions present prior to admission:
Asthma-moderate persistent, no significant eosinophil elevation
Allergies.
GERD.
Hiatal hernia.
Skin cancer.
Polycystic liver.
SVT status post ablation.
Anxiety.
Depression.
Breast cancer-lumpectomy/chemo/XRT-2016
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 Right ANNIKA. Cataract-2014
Family history COPD-mother
Family history lung cancer-father
Plan
Respiratory status slowly improving-persistent cough-minimally productive at this point
Supplemental oxygen as needed-currently on room air
Incentive spirometry encouraged
Mucolytic's intensified
Vufugmoizw-QbyVsnm-dgq likes nebulizers and home nebulizers could be arranged as an outpatient
Symbicort and Spiriva continue-on Trelegy as an outpatient
Mucus clearing devices
Incentive spirometry encouraged
Flutter encouraged
Vest therapy twice daily
Continue Singulair and Zyrtec
Patient with expiratory wheezing on exam-add steroids intravenously-fairly rapid change to prednisone with taper
Obtain previous allergy testing performed by Dr. River
Eosinophils 01/13/2020 4-200
Will obtain baseline IgE level, ESR, gammaglobulin levels
ESR 01/15/2020 4-48
Consider Biologics such as IL-5 inhibitors or IL/13 inhibitor in the outpatient setting if recurrent exacerbations requiring prednisone-reviewed with patient
Sputum Gram stain and cultures 01/14/2024-AFB fungus-pending
Sputum culture 01/14/2024-few squamous epithelial cells, many WBCs, many gram-positive cocci, cultures pending
Currently observe off antibiotics-no leukocytosis, temperature, night sweats
Will strongly consider antibiotics based on culture results with bronchiectasis and suspected TRACEE, also sputum culture results
Eventually consider infectious disease consultation depending on culture results
Diuresis as tolerated
Monitor renal function, electrolytes, intake/output, lower extremity edema and weight
Replace electrolytes as needed
Echocardiogram 01/14/2024-EF 60-65%, PA systolic 30-35, no significant change from May 2022
Troponin negative
Monitor blood sugar
Insulin supplementation as needed
DVT prophylaxis-on Lovenox
GI prophylaxis-on pantoprazole and famotidine
Nutrition
Early mobilization
Patient feels nebulizers helping-can arrange for home nebulizers
Consider vest therapy as an outpatient as well
Patient had been following with Dr. River-allergy and immunology and referred to pulmonary recently-ideally would obtain allergy records
Patient has appointment 03/09/24 at 3 PM with PFTs-Dr. Loren Camacho-we will ask patient to be seen in a couple weeks after discharge
Diagnostic data:
Chest x-ray 04/15/2017-use right subclavian port, no pneumothorax, biapical scarring
Chest x-ray 02/04/2020-NAD
Chest x-ray 10/18/2021-NAD
CXR 11/15/2023: No acute disease. Moderate hiatal hernia, enlarged.
Chest x-ray 01/13/2024-NAD, moderate-sized hiatal hernia
CT chest 12/12/20234159-fglg-lm-bud opacifications throughout bilateral lungs with bibasilar bronchiectasis and mucoid impactions, apparent right subclavian artery and retroesophageal course and mild dilation of proximal subclavian artery, 2.8 cm
low-density lesion right thyroid lobe, moderate hiatal hernia
Lower extremity ultrasound 01/13/2024-no evidence for DVT in lower extremities bilaterally
Echo 05/16/2022: Small LV size. Normal systolic function. EF 63%. Mild concentric LVH.� An incidental finding noted on the subcostal view is that of a large sonolucent mass in the liver that was noted on's CAT scan in 2019
[place] 12/04/23: FVC 1.55/57%, FEV1 1.13/56%, ratio 73%, no significant BD response.� Suggestive of moderate restrictive pattern.
Subjective Data
-
Date of Service:
Date of Service: January 15, 2024
Chief Complaint: Pulmonary Follow Up and Dyspnea Follow Up
Subjective:
Feels a little better, still has some wheezing, still has some coughing, no chest pain or abdominal pain, mucus has decreased
Review of Systems
General: Other ( per HPI)
Objective Data
Data Reviewed
Vital Signs / I&O:
Vital Signs
Temp Pulse Resp BP Pulse Ox
97.5 F 80 18 111/64 92
01/15/24 07:27 01/15/24 08:12 01/15/24 08:12 01/15/24 07:27 01/15/24 08:12
Intake and Output
01/14/24 01/15/24 01/16/24
06:59 06:59 06:59
Intake Total 240 / 240 1020 / 1020
Output Total 250 / 250
Balance -10 -10 1020 / 1020
SaO2: 92
Physical Exam
General: Respiratory Distress (n) and Comfortable
HEENT: Normocephalic, Anicteric and Moist Mucous Membranes
Cardiovascular: Regular Rhythm and Murmur
Respiratory: Wheeze (Forced expiratory), Crackles (Rare right greater than left basilar f), Rhonchi (n), Non-Labored Respirations, Accessory Resp Muscle Use (n) and Stridor (n)
GI: Soft, Non Distended and Non Tender
Neurology: Awake, Alert and No Motor Deficits
Skin: Warm, Good Color, Cyanosis (n) and Jaundice (n)
Labs/Micro/Reports
Lab Data
01/14/24 05:47
01/14/24 05:47
Microbiology
01/14/24 13:14 Sputum Gram Stain - Preliminary
[2024-01-15 09:26] LABS: IgA 254 mg/dl (70-400)
[2024-01-15] MEDS: ARIMIDEX 1 MG PO (09:45)
[2024-01-15] MEDS: PAXIL 10 MG PO (09:45)
[2024-01-15] MEDS: PROTONIX 40 MG PO (09:46)
[2024-01-15] MEDS: CRESTOR 5 MG PO (09:46)
[2024-01-15] MEDS: ROBITUSSIN 200 MG PO ×4 (09:46→20:58)
[2024-01-15] MEDS: ESKALITH REGULAR RELEASE 300 MG PO ×2 (09:46→20:58)
[2024-01-15] MEDS: COLACE 100 MG PO ×2 (09:46→20:58)
--- NOTE | 2024-01-15 10:22 | CM ---
Maintained on IV steroids will transition to po at dc.
PT recommends VN . OT no skilled needs . Pt declined VN .
Pt requests out pt PT at dc.Will need MD script for out pt PT.
Family will drive her home.
PLAN Home no needs (Pt will set up out pt PT )
[2024-01-15 10:48] VITALS: BP 112/61
[2024-01-15] MEDS: DECADRON 4 MG IV ×2 (12:26→20:57)
[2024-01-15 15:11] VITALS: BP 112/65
--- NOTE | 2024-01-15 17:05 | W.PN.HOSP.TC ---
Today's Communication/Plan
-
Expectoration therapy.
Corticosteroids.
Increase activity.
Home O2 assessment
Discharge planing
Assessment / Plan
Assessment / Plan
Impression:
Patient is an 78y F with PMH significant for asthma, chronic cough, GERD and hiatal hernia who presents to ED complaining of new SOB and LE edema over the past week.
Subjective dyspnea likely multifactorial.
Lower extremity edema.
Bronchiectasis
Chronic cough.
Asthma
GERD with hiatal hernia possibly contributing to chronic cough given persistent reflux.
History of breast carcinoma.
Anxiety/depression
Plan
Subjective dyspnea likely multifactorial in the patient with bronchiectatic disease
Less likely CHF.
Does not of lower extremity edema, although overall compensated volume status.
Chest x-ray with clear lung molina.
Pro CHF BNP within normal limits.
Echocardiogram with preserved biventricular function and no significant valvular abnormalities.
Status post single dose of Lasix in the ED on 01/13
Hold further diuresis
Monitor volume status closely
Bronchiectasis
Recent CT scan 12/12/2023 shows tree-in-bud formations, groundglass opacities
Chronic cough likely function of severe GERD and hiatal hernia with reflux.
Pulmonary evaluation pending.
Check sputum for AFB.
Continue nebs, mucolytic's, Acapella
Initiated on IV steroids with plan to transition to oral taper over the next 24 hours
Outpatient pulmonology follow-up.
Speech and swallow evaluation appreciated.
Continue acid suppression
History of Breast Cancer
- s/p lumpectomy as well as adjuvant chemo and XRT.
- ? degree of chronic lung issues related to XRT treatments.
- Continue anastrazole.
Anxiety / Depression
- Stable. Continue current medications.
DVT Prophylaxis: Lovenox
Code Status: Full
Anticipated Discharge: 24 - 48 hours
Subjective/Interval History
-
Date of Service: January 15, 2024
Objective Data
-
Vital Signs:
Vital Signs
Temp Pulse Resp BP Pulse Ox
97.9 F 91 18 112/65 92
01/15/24 15:11 01/15/24 15:15 01/15/24 15:15 01/15/24 15:11 01/15/24 15:15
I&O
01/14/24 01/15/24 01/16/24
06:59 06:59 06:59
Intake Total 240 / 240 1020 / 1020 540 / 540
Output Total 250 / 250
Balance -10 / -10 1020 / 1020 540 / 540
Physical Exam
-
General: Well Developed and No Apparent Distress
HEENT: Normocephalic, Atraumatic and Moist Mucous Membranes
Respiratory: Clear to Auscultation
Cardiac: Regular Rhythm and S1/S2; Negative Murmur, Rub or Gallop
GI: Soft, Nontender, Nondistended and Normal Bowel Sounds; Negative Organomegaly
Rectal: Deferred by Provider
Musculoskeletal: No Clubbing, No Cyanosis and No Edema
Skin: Negative Rash
Neuro: Nonfocal/Grossly Intact
[2024-01-15] MEDS: LOVENOX 40 MG SC (17:12)
[2024-01-15] MEDS: SINGULAIR 10 MG PO (17:12)
[2024-01-15] MEDS: ZYRTEC 5 MG PO (17:12)
[2024-01-15] MEDS: SEROQUEL 25 MG PO (17:13)
[2024-01-15 18:35] VITALS: BP 129/73
[2024-01-15] MEDS: SEROQUEL 50 MG PO (20:58)
[2024-01-15] MEDS: MELATONIN 3 MG PO (20:58)
[2024-01-15] MEDS: PEPCID 40 MG PO (20:58)
[2024-01-15] MEDS: TYLENOL 650 MG PO (21:20)
[2024-01-15 23:35] VITALS: BP 110/63
[2024-01-16 03:05] VITALS: BP 141/80
[2024-01-16] MEDS: TYLENOL 650 MG PO (03:55)
[2024-01-16 06:00] VITALS: BMI 27.6
[2024-01-16 07:23] VITALS: BP 130/70
[2024-01-16] MEDS: VENTOLIN NEBULES 2.5 MG INH ×3 (07:58→15:41)
[2024-01-16] MEDS: SPIRIVA RESPIMAT 2.5 MCG 2 PUFF INH (07:58)
[2024-01-16] MEDS: SYMBICORT 160/4.5 MCG INHALER 2 PUFF INH (07:58)
[2024-01-16] MEDS: ESKALITH REGULAR RELEASE 300 MG PO (08:44)
[2024-01-16] MEDS: PROTONIX 40 MG PO (08:44)
[2024-01-16] MEDS: COLACE 100 MG PO (08:44)
[2024-01-16] MEDS: PAXIL 10 MG PO (08:44)
[2024-01-16] MEDS: ROBITUSSIN 200 MG PO ×2 (08:44→13:01)
[2024-01-16] MEDS: ARIMIDEX 1 MG PO (08:44)
[2024-01-16] MEDS: CRESTOR 5 MG PO (08:44)
--- NOTE | 2024-01-16 09:10 | W.PN.PUL3 ---
Today's Communication / Plan
-
Stable on RA, more productive cough noted, sputum negative to date
We discussed airway clearance at home
Can follow up in office for further steps, repeat PFTs
Discharge planning per team
Assessment
-
78-year-old female patient with long history of asthma, 36-jztc-yaak smoking history quit 50 years ago, GERD, chronic cough and prior breast cancer who presented with increasing cough, shortness of breath and increased lower extremity swelling felt
to have some CHF and bronchitis-pulmonary consulted for mucus production and shortness of breath 01/14/2024.
Chronic cough/chronic bronchitis/bronchiectasis
Asthma-suspect moderate persistent with mild acute exacerbation
Abnormal CT aikms-fwxt-mr-bud-consistent with atypical mycobacterial infection
CHF with preserved EF-mild
Bronchiectasis with mucoid impaction
Mild hyperglycemia
Conditions present prior to admission:
Asthma-moderate persistent, no significant eosinophil elevation
Allergies.
GERD.
Hiatal hernia.
Skin cancer.
Polycystic liver.
SVT status post ablation.
Anxiety.
Depression.
Breast cancer-lumpectomy/chemo/XRT-2016
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 Right ANNIKA. Cataract-2014
Family history COPD-mother
Family history lung cancer-father
Plan
Respiratory status slowly improving-persistent cough-minimally productive at this point
Supplemental oxygen as needed-currently on room air
Incentive spirometry encouraged
Mucolytic's intensified
Ayuuihodqm-MpbKene-zgs likes nebulizers and home nebulizers could be arranged as an outpatient
Symbicort and Spiriva continue-on Trelegy as an outpatient
Mucus clearing devices
Incentive spirometry encouraged
Flutter encouraged
Vest therapy twice daily
Continue Singulair and Zyrtec
Patient with expiratory wheezing on exam-add steroids intravenously-fairly rapid change to prednisone with taper
Obtain previous allergy testing performed by Dr. River
Eosinophils 01/13/2020 4-200
Will obtain baseline IgE level, ESR, gammaglobulin levels
ESR 01/15/2020 4-48
Consider Biologics such as IL-5 inhibitors or IL/13 inhibitor in the outpatient setting if recurrent exacerbations requiring prednisone-reviewed with patient
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
Sputum culture 01/14/2024-few squamous epithelial cells, many WBCs, many gram-positive cocci, cultures pending
Currently observe off antibiotics-no leukocytosis, temperature, night sweats
Will strongly consider antibiotics based on culture results with bronchiectasis and suspected TRACEE, also sputum culture results
Eventually consider infectious disease consultation depending on culture results
Diuresis as tolerated
Monitor renal function, electrolytes, intake/output, lower extremity edema and weight
Replace electrolytes as needed
Echocardiogram 01/14/2024-EF 60-65%, PA systolic 30-35, no significant change from May 2022
Troponin negative
Monitor blood sugar
Insulin supplementation as needed
DVT prophylaxis-on Lovenox
GI prophylaxis-on pantoprazole and famotidine
Nutrition
Early mobilization
Patient feels nebulizers helping-can arrange for home nebulizers
Consider vest therapy as an outpatient as well
Patient had been following with Dr. River-allergy and immunology and referred to pulmonary recently-ideally would obtain allergy records
Patient has appointment 03/09/24 at 3 PM with PFTs-Dr. Loren Camacho-we will ask patient to be seen in a couple weeks after discharge
Diagnostic Data:
Chest x-ray 04/15/2017-use right subclavian port, no pneumothorax, biapical scarring
Chest x-ray 02/04/2020-NAD
Chest x-ray 10/18/2021-NAD
CXR 11/15/2023: No acute disease. Moderate hiatal hernia, enlarged.
Chest x-ray 01/13/2024-NAD, moderate-sized hiatal hernia
CT chest 12/12/20232228-xpny-qf-bud opacifications throughout bilateral lungs with bibasilar bronchiectasis and mucoid impactions, apparent right subclavian artery and retroesophageal course and mild dilation of proximal subclavian artery, 2.8 cm
low-density lesion right thyroid lobe, moderate hiatal hernia
Lower extremity ultrasound 01/13/2024-no evidence for DVT in lower extremities bilaterally
Echo 05/16/2022: Small LV size. Normal systolic function. EF 63%. Mild concentric LVH.� An incidental finding noted on the subcostal view is that of a large sonolucent mass in the liver that was noted on's CAT scan in 2019
[place] 12/04/23: FVC 1.55/57%, FEV1 1.13/56%, ratio 73%, no significant BD response.� Suggestive of moderate restrictive pattern.
Subjective Data
-
Date of Service:
Date of Service: January 16, 2024
Chief Complaint: Pulmonary Follow Up and Dyspnea Follow Up
Subjective:
No new events, stable on RA
Able to cough with mucus now
Objective Data
Data Reviewed
Vital Signs / I&O / Oxygen:
Vital Signs
Temp Pulse Resp BP Pulse Ox
97.8 F 77 18 130/70 94
01/16/24 07:23 01/16/24 08:02 01/16/24 08:02 01/16/24 07:23 01/16/24 08:02
Intake and Output
01/15/24 01/16/24 01/17/24
06:59 06:59 06:59
Intake Total 1020 / 1020 540 / 540
Balance 1020 / 1020 540 / 540
SaO2 94
Physical Exam
General: Respiratory Distress (n) and Comfortable
HEENT: Normocephalic, Anicteric and Moist Mucous Membranes
Cardiovascular: Regular Rhythm and Murmur
Respiratory: Wheeze (Forced expiratory), Crackles (Rare right greater than left basilar f), Rhonchi (n), Non-Labored Respirations, Accessory Resp Muscle Use (n) and Stridor (n)
GI: Soft, Non Distended and Non Tender
Neurology: Awake, Alert and No Motor Deficits
Skin: Warm, Good Color, Cyanosis (n) and Jaundice (n)
Labs/Micro/Reports
Lab Data
01/14/24 05:47
01/14/24 05:47
Microbiology
01/14/24 13:14 Sputum Respiratory Culture - Preliminary
Usual Respiratory Alia
01/14/24 13:14 Sputum Gram Stain - Preliminary
[2024-01-16] MEDS: DECADRON 4 MG IV (10:48)
[2024-01-16] MEDS: FLUSH (NSS) 2 FLUSH IV (10:49)
[2024-01-16 11:02] VITALS: BP 128/77
--- NOTE | 2024-01-16 11:12 | CM ---
CM following re: discharger planning.
Reviewed pt's chart, met with pt.
Pt reports she feels she might be ready for discharge today. IMM reviewed, placed on chart, pt has a copy.
PT and OT evaluations noted - outpatient PT/OT recommended. pt is aware and she stated she was getting outpatient OT at outpatient therapy department and she will resume outpatient therapy at .
Please provide a script for outpatient PT/OT
D/C plna: home with outpatient PT/OT. Pt stated her will transport home.
[2024-01-16 13:33] VITALS: BP 145/87; PULSE 96; O2SAT 94
--- NOTE | 2024-01-16 14:56 | W.DS.TRANS ---
DC Summary - Marina Manager
-
Discharge Instructions:
Sleep Apnea Risk Low
Discharge Diagnosis/Procedures Subjective dyspnea likely multifactorial.
Lower extremity edema.
Bronchiectasis
Chronic cough.
Asthma
GERD with hiatal hernia possibly contributing to
chronic cough given persistent reflux.
History of breast carcinoma.
Anxiety/depression
Instructions: *PCP/Other Remediation Technician Heart Failure Instructions
Stand-Alone Forms:
Changes to Home Medications: Yes
Discharge Medications:
DC Medications w/original date entered in [employer]
fluticasone propionate 50 mcg/actuation nasal spray,suspension 2 spray intranasal DAILY 09/18/11
euznklvk-qpy-syinw acid 0.4 mg-lycopene 300 mcg-lutein 250 mcg tablet (Centrum Silver) 1 ea PO DAILY 09/18/11
albuterol sulfate 90 mcg/actuation aerosol inhaler 2 puff inhalation Q4HPRN PRN SOB 01/13/16
azelastine 137 mcg (0.1 %) nasal spray 2 spray intranasal BID Allergies 01/13/16
anastrozole 1 mg tablet 1 mg PO DAILY Hormonal Agent 06/26/22
famotidine 40 mg tablet 40 mg PO HS 06/26/22
fluticasone fur. 200 mcg-umeclid 62.5 mcg-vilant 25 mcg inhalat.powder (Trelegy Ellipta) 1 inh inhalation QPM 06/26/22
montelukast 10 mg tablet 10 mg PO QPM 06/26/22
rosuvastatin 5 mg tablet 5 mg PO DAILY 06/26/22
Saccharomyces boulardii 250 mg capsule (Florastor) 250 mg PO DAILY 09/24/22
levocetirizine 5 mg tablet 5 mg PO QPM 09/24/22
acetaminophen 650 mg tablet,extended release 650 mg PO Q4HWA #60 tabs 10/16/22
docusate sodium 100 mg capsule 100 mg PO BID #30 caps 10/16/22
biotin 1 mg capsule 1 mg PO DAILY Supplement 01/14/24
cholecalciferol (vitamin D3) 25 mcg (1,000 unit) tablet (Vitamin D3) 25 mcg PO DAILY 01/14/24
iron 50 mg iron tablet 1 tab PO DAILY 01/14/24
lansoprazole 30 mg capsule,delayed release 30 mg PO DAILY 01/14/24
lithium carbonate 300 mg tablet 300 mg PO BID 01/14/24
melatonin 3 mg tablet 3 mg PO HS 01/14/24
paroxetine HCl 10 mg tablet (Paxil) 10 mg PO DAILY 01/14/24
quetiapine 25 mg tablet 25 mg PO HS 01/14/24
quetiapine 50 mg tablet 50 mg PO HS 01/14/24
guaifenesin 100 mg/5 mL oral liquid 200 mg (10 mL) PO QID #1,500 mL 01/16/24
prednisone 10 mg tablet 10 mg PO DIRECTED #20 tabs 01/16/24
Home Medication Changes
Prednisone taper
Pending Results: No
[2024-01-16 15:27] VITALS: BP 126/69
[2024-01-17 00:53] LABS: IgE 37 kU/L (<=214)
[2024-01-17 04:54] LABS: IgG Subclass 1 465 mg/dL (240-1118); IgG Subclass 2 171 mg/dL (124-549); IgG Subclass 3 132 mg/dL (21-134); IgG Subclass 4 32 mg/dL (1-123)
== END 2024-01-16 17:50 | disposition home or self-care (01) | DRG 191 ==
LOC: 3 WEST ACU 02:54
PROVIDERS: Emergency Medicine; ADMITTING PHYSICIAN Hospitalist; ATTENDING PHYSICIAN Internal Medicine; EMERGENCY PHYSICIAN Emergency Medicine; FAMILY PHYSICIAN Family Medicine; OTHER PHYSICIAN Internal Medicine Critical Care Medicine
DX: J47.1 Bronchiectasis with (acute) exacerbation (principal); I50.30 Unspecified diastolic (congestive) heart failure; J45.31 Mild persistent asthma with (acute) exacerbation; I11.0 Hypertensive heart disease with heart failure; F32.A Depression, unspecified; J44.89 Other specified chronic obstructive pulmonary disease; K21.9 Gastro-esophageal reflux disease without esophagitis; K44.9 Diaphragmatic hernia without obstruction or gangrene; F41.9 Anxiety disorder, unspecified; E78.5 Hyperlipidemia, unspecified; R09.02 Hypoxemia; R60.0 Localized edema; R05.3 Chronic cough; R09.82 Postnasal drip; R73.9 Hyperglycemia, unspecified; Z96.652 Presence of left artificial knee joint; Z79.811 Long term (current) use of aromatase inhibitors; Z79.899 Other long term (current) drug therapy; Z85.828 Personal history of other malignant neoplasm of skin; Z86.79 Personal history of other diseases of the circulatory system; Z85.3 Personal history of malignant neoplasm of breast; Z87.891 Personal history of nicotine dependence; Z92.21 Personal history of antineoplastic chemotherapy; Z92.3 Personal history of irradiation; Z80.1 Family history of malignant neoplasm of trachea, bronchus and lung; Z82.5 Family history of asthma and other chronic lower respiratory diseases
CPT/HCPCS: 71046; 80048; 80053; 82784; 82785; 82787; 83880; 84484; 85025; 85027; 85652; 87015; 87070; 87116; 87205; 92610; 93005; 93306; 93970; 94640; 94667; 94669; 97116; 97162; 97165; 97530; 99285

== ENCOUNTER → 2024-05-07 10:54 | Outpatient (REF) | payer OTHER, SELFPAY | LOC: WDC 10:54 | PROVIDERS: ATTENDING PHYSICIAN Surgery; FAMILY PHYSICIAN Family Medicine | DX: Z12.31 Encounter for screening mammogram for malignant neoplasm of breast (principal) | CPT/HCPCS: 77063; 77067 ==

== ENCOUNTER → 2024-05-13 09:40 | Outpatient (REF) | payer OTHER, SELFPAY | LOC: HWRAD 09:40 | PROVIDERS: ATTENDING PHYSICIAN Internal Medicine; FAMILY PHYSICIAN Family Medicine | DX: J47.9 Bronchiectasis, uncomplicated (principal) | CPT/HCPCS: 71250 ==

== ENCOUNTER → 2024-06-12 11:20 | Outpatient (REF) | payer SELFPAY | LOC: HWRAD 11:20 | PROVIDERS: ATTENDING PHYSICIAN Family Medicine | DX: I25.10 Atherosclerotic heart disease of native coronary artery without angina pectoris (principal) | CPT/HCPCS: 75571 ==

== ENCOUNTER → 2024-06-29 10:33 | Outpatient (REF) | payer OTHER, SELFPAY | LOC: RAD 10:33 | PROVIDERS: ATTENDING PHYSICIAN Student in an Organized Health Care Education/Training Program; FAMILY PHYSICIAN Family Medicine | DX: M25.552 Pain in left hip (principal); S79.912A Unspecified injury of left hip, initial encounter | CPT/HCPCS: 73523 ==

== ENCOUNTER 2024-07-21 16:43 | Inpatient (IN) | payer OTHER, SELFPAY ==
[2024-07-21] VITALS (10 sets, daily range): BP systolic 113–143; BP diastolic 68–76; BMI 27.8
--- NOTE | 2024-07-21 12:04 | ED.GENMED ---
History of Present Illness
<Sandra Villasenor PA-C - Last Filed: 07/21/24 18:17>
General
Chief Complaint: Breathing Problem
Source: patient
Exam Limitations: none
Time Seen by Provider: 07/21/24 12:02
Nursing documentation reviewed up to this point in time: agreed with
History of Present Illness
History of Present Illness:
79-year-old male with a past medical history of bronchiectasis, CHF, asthma, hyperlipidemia who presents emergency department today with concerns of shortness of breath and cough for the past 6 days. Patient states that with her bronchiectasis she
has chronic shortness of breath she states it has gotten a lot worse and notes that her has been sick with similar symptoms. She states that her albuterol Hailer and DuoNeb treatments are not helping her asthma is a usually do. She denies
any fevers or chills. She does note some diarrhea as well as a decreased appetite. She denies abdominal pain, nausea, vomiting. She denies chest pain.
Past History
<Sandra Villasenor PA-C - Last Filed: 07/21/24 18:17>
Past History
ED Past Medical History: Asthma, Cancer and Other (Asthma, GERD, lumbar radiculitis)
ED Past Surgical History: Other (lumpectomy)
Patient has exhibited threatening behavior?: No
PSI?: No
Social History
Tobacco: Non-smoker
Alcohol: Occasional
Personal:
Living: with family
Family History
Family History: Negative Diabetes, Hypertension or CAD
Review of Systems
<Sandra Villasenor PA-C - Last Filed: 07/21/24 18:17>
Review of Systems
All Other Systems: ROS reviewed and negative except as documented in HPI and ROS
Phy Exam
<Sandra Villasenor PA-C - Last Filed: 07/21/24 18:17>
Physical Exam
Physical Exam:
General: Patient is in mild respiratory distress but non-toxic appearing
Skin: Warm and dry, no rashes or lesions
Head: Normocephalic, atraumatic
Eyes: Sclera non-icteric. EOMs intact.
Cardiac: Regular rate and rhythm, no murmurs
Peripheral Vascular: No lower extremity swelling or edema
Pulm: Tachypnea, hypoxia to 88% on room air, diffuse wheezing heard on exam
Abdomen: No abdominal tenderness to palpation
Neuro: CN II-XII intact, no focal neurologic deficits.
Psychiatric: Appropriate mood and affect.
Scores
<Sandra Villasenor PA-C - Last Filed: 07/21/24 18:17>
Heart Failure Risk
Heart Failure Risk Score: Not Applicable
Course
<Sandra Villasenor PA-C - Last Filed: 07/21/24 18:17>
Orders/Labs/Results
Orders:
Orders
07/21/24 11:46
EKG [Electrocardiogram (*1)] Urgent
Reason for Study: Shortness of Breath
EKG- Treatment ONCE
CR Chest - 2 Views Urgent
Comment:
Reason For Exam: SOB/cough
07/21/24 12:10
COVID-19 Antigen Urgent
Source: Nasal Swab
Complete Blood Count/With Diff Urgent
Comprehensive Metabolic Panel Urgent
Pro-BNP [NT-proBNP] Urgent
Prothrombin Time Urgent
Troponin I Urgent
Influenza A+B Rapid Molecular Urgent
JACOBO Source: Nasal Swab
Specimen Description:
07/21/24 12:31
Ipratropium/Albuterol Sulfate [Duoneb] 3 ml INH R NOW STA
Ipratropium/Albuterol Sulfate [Duoneb] 3 ml INH R NOW STA
07/21/24 13:36
CT Chest W/o Iv Contrast Urgent
Comment:
Reason For Exam: shortness of breath, questionable left sided effus
07/21/24 14:31
Azithromycin 500 mg/250 ml [Zithromax Infusion] 500 mg in 250 ml IV NOW
CefTRIAXone [Rocephin] 2,000 mg IV NOW STA
07/21/24 14:53
Sterile Water [Sterile Water For Injection] 20 ml .ROUTE .STK-MED
07/21/24 16:09
Admit/Transfer Patient As Directed
Co-Sign Provider:
Level of Care: Inpatient admission
Assign to:: Telemetry
Physician / Group: Bernie Valles
Diagnosis: pnemuonia, influenza
Reason for Telemetry: Arrhythmia
Date to Stop Telemetry: 07/24/24
Time to Stop Telemetry: 11:00
Reason for Hospitalization: pneumonia, influenza
Expected length of stay greater than two midnights?: Yes
ELOS- Estimated Length of Stay in days: 3
I certify the patient meets the requirements for IP care: Yes
07/21/24 16:10
PRN Pain Medication Management As Directed
May give lesser potent ordered pain med per pt: Yes
preference::
Protocol:: Medication orders for pain may be administered in a
manner that supports deferring to patient preference
when the pt is:
- Requesting an ordered lesser potent pain medication.
Least to most potent pain medications are defined
as: acetaminophen < NSAID < tramadol < opioids
(morphine, oxycodone, hydromorphone).
- Requesting a lesser dose of the same medication IF
ORDERED.
- Requesting a less intrusive route of administration
if both routes are prescribed by the provider (PO <
IV).
07/21/24 16:13
Code Status As Directed
Resuscitation Status: Full Code
07/21/24 16:17
PRN Pain Medication Management As Directed
May give lesser potent ordered pain med per pt: Yes
preference::
Protocol:: Medication orders for pain may be administered in a
manner that supports deferring to patient preference
when the pt is:
- Requesting an ordered lesser potent pain medication.
Least to most potent pain medications are defined
as: acetaminophen < NSAID < tramadol < opioids
(morphine, oxycodone, hydromorphone).
- Requesting a lesser dose of the same medication IF
ORDERED.
- Requesting a less intrusive route of administration
if both routes are prescribed by the provider (PO <
IV).
07/24/24 11:00
DC Protocol for Telemetry ONCE
Abnormal Lab Results
07/21/24
12:10
WBC 2.9 L 10^3/uL
(4.8-10.8)
RBC 4.09 L 10^6/uL
(4.20-5.40)
Hgb 11.9 L g/dL
(12.0-16.0)
MCHC 31.5 L g/dL
(33.0-37.0)
RDW 15.3 H %
(11.5-14.5)
Absolute Lymphs (auto) 0.7 L 10^3/uL
(1.2-3.4)
Monocytes % 10.9 H %
(1.7-9.3)
Glucose 109 H mg/dl
(70-99)
AST 68 H U/L
(14-36)
ALT 42 H U/L
(0-35)
07/21/24 12:10
07/21/24 12:10
Vital Signs
Initial and Last Documented VS:
Initial Vital Signs
Temp Pulse Resp BP Pulse Ox
98.5 F 74 20 113/71 91
07/21/24 11:48 07/21/24 11:48 07/21/24 11:48 07/21/24 11:48 07/21/24 11:48
Last Documented Vital Signs
Temp Pulse Resp BP Pulse Ox
98.5 F 67 26 113/71 95
07/21/24 11:48 07/21/24 13:00 07/21/24 13:00 07/21/24 11:48 07/21/24 12:52
<Tavo Pabon, DO - Last Filed: 07/21/24 14:32>
Orders/Labs/Results
Orders:
Orders
07/21/24 11:46
EKG [Electrocardiogram (*1)] Urgent
Reason for Study: Shortness of Breath
EKG- Treatment ONCE
CR Chest - 2 Views Urgent
Comment:
Reason For Exam: SOB/cough
07/21/24 12:10
COVID-19 Antigen Urgent
Source: Nasal Swab
Complete Blood Count/With Diff Urgent
Comprehensive Metabolic Panel Urgent
Pro-BNP [NT-proBNP] Urgent
Prothrombin Time Urgent
Troponin I Urgent
Influenza A+B Rapid Molecular Urgent
JACOBO Source: Nasal Swab
Specimen Description:
07/21/24 12:31
Ipratropium/Albuterol Sulfate [Duoneb] 3 ml INH R NOW STA
Ipratropium/Albuterol Sulfate [Duoneb] 3 ml INH R NOW STA
07/21/24 13:36
CT Chest W/o Iv Contrast Urgent
Comment:
Reason For Exam: shortness of breath, questionable left sided effus
07/21/24 14:31
Azithromycin 500 mg/250 ml [Zithromax Infusion] 500 mg in 250 ml IV NOW
CefTRIAXone [Rocephin] 2,000 mg IV NOW STA
07/21/24 14:53
Sterile Water [Sterile Water For Injection] 20 ml .ROUTE .STK-MED
07/21/24 16:09
Admit/Transfer Patient As Directed
Co-Sign Provider:
Level of Care: Inpatient admission
Assign to:: Telemetry
Physician / Group: Bernie Valles
Diagnosis: pnemuonia, influenza
Reason for Telemetry: Arrhythmia
Date to Stop Telemetry: 07/24/24
Time to Stop Telemetry: 11:00
Reason for Hospitalization: pneumonia, influenza
Expected length of stay greater than two midnights?: Yes
ELOS- Estimated Length of Stay in days: 3
I certify the patient meets the requirements for IP care: Yes
07/21/24 16:10
PRN Pain Medication Management As Directed
May give lesser potent ordered pain med per pt: Yes
preference::
Protocol:: Medication orders for pain may be administered in a
manner that supports deferring to patient preference
when the pt is:
- Requesting an ordered lesser potent pain medication.
Least to most potent pain medications are defined
as: acetaminophen < NSAID < tramadol < opioids
(morphine, oxycodone, hydromorphone).
- Requesting a lesser dose of the same medication IF
ORDERED.
- Requesting a less intrusive route of administration
if both routes are prescribed by the provider (PO <
IV).
07/21/24 16:13
Code Status As Directed
Resuscitation Status: Full Code
07/21/24 16:17
PRN Pain Medication Management As Directed
May give lesser potent ordered pain med per pt: Yes
preference::
Protocol:: Medication orders for pain may be administered in a
manner that supports deferring to patient preference
when the pt is:
- Requesting an ordered lesser potent pain medication.
Least to most potent pain medications are defined
as: acetaminophen < NSAID < tramadol < opioids
(morphine, oxycodone, hydromorphone).
- Requesting a lesser dose of the same medication IF
ORDERED.
- Requesting a less intrusive route of administration
if both routes are prescribed by the provider (PO <
IV).
07/24/24 11:00
DC Protocol for Telemetry ONCE
Abnormal Lab Results
07/21/24
12:10
WBC 2.9 L 10^3/uL
(4.8-10.8)
RBC 4.09 L 10^6/uL
(4.20-5.40)
Hgb 11.9 L g/dL
(12.0-16.0)
MCHC 31.5 L g/dL
(33.0-37.0)
RDW 15.3 H %
(11.5-14.5)
Absolute Lymphs (auto) 0.7 L 10^3/uL
(1.2-3.4)
Monocytes % 10.9 H %
(1.7-9.3)
Glucose 109 H mg/dl
(70-99)
AST 68 H U/L
(14-36)
ALT 42 H U/L
(0-35)
07/21/24 12:10
07/21/24 12:10
Vital Signs
Initial and Last Documented VS:
Initial Vital Signs
Temp Pulse Resp BP Pulse Ox
98.5 F 74 20 113/71 91
07/21/24 11:48 07/21/24 11:48 07/21/24 11:48 07/21/24 11:48 07/21/24 11:48
Last Documented Vital Signs
Temp Pulse Resp BP Pulse Ox
98.5 F 67 26 113/71 95
07/21/24 11:48 07/21/24 13:00 07/21/24 13:00 07/21/24 11:48 07/21/24 12:52
<Sandra Villasenor PA-C - Last Filed: 07/21/24 18:17>
MDM/Problems Addressed
Differential Diagnosis Includes:
ddx include chronic bronchiectasis, influenza, COVID, asthma exacerbation, pneumonia, heart failure
MDM/Problems Addressed:
79-year-old female presents emergency department today with concerns of worsening shortness of breath of the past few days. She is have a history of bronchiectasis. She was hypoxic to 88% on room air. Her chest x-ray shows a questionable
left-sided infiltrate. She tested positive for influenza A. Her CT scan of the chest does show severe to moderate pneumonia as well as severe cylindrical bronchiectasis in both lower lobes. Considering new oxygen requirement, tachypnea, will
start IV antibiotics and will admit for further treatment and workup. Case reviewed with attending.
Chronic conditions affecting care:
n/a
<Sandra Villasenor PA-C - Last Filed: 07/21/24 18:17>
*Pulse Oximetry
Patient hypoxic: no
*Critical Care Note
Total Time (30-74mins, 75-104mins- exclusive of procedures): Not Applicable
Data Reviewed
Review of Other/Old Records Reveals: Records (Reviewed discharge summary from 01/16/2024 patient seen for exertional dyspnea and bronchiectasis with exacerbation likely multifactorial)
Source: patient
ED Attending Note
<Sandra Villasenor PA-C - Last Filed: 07/21/24 18:17>
-
Portions of this chart may have been created with voice recognition software.� Occasional wrong word or��sound alike� substitutions may have occurred due to the inherent limitations of voice recognition software.
<Tavo Pabon DO - Last Filed: 07/21/24 14:32>
ED Attending Note
Patient seen and examined by attending physician: Yes
I performed the substantive portion of visit, reviewed & personally made and approve the management plan that is documented in note by myself or FRANCINE.: Yes
ED Attending Note:
I evaluated the patient at bedside. The patient's room air sat goes down to 90% and she is tachypneic. Leukopenia noted. She has a history of bronchiectasis. Chest x-ray suggest either pleural effusion or pneumonia at the left base. Will obtain
CT imaging for further evaluation. Starting HCAP Antibiotics.
Discharge Plan
Departure
Patient Disposition: Admit
Date of Disposition: 07/21/24
Time of Disposition: 14:47
Presentation/result/management discussed w/ accepting MD/DO: Hospitalist
Condition: Fair
Discharge Problem:
Influenza A, Hypoxia, Leukopenia
Interventions
Interventions:
*Risk Screen - Suicide Last Done: 07/21/24 12:37
*Neglect/Abuse Screening Last Done: 07/21/24 12:37
*ED- Fall Risk Assessment Last Done: 07/21/24 12:37
ED- Cardiac Assessment Last Done: 07/21/24 12:36
ED- Pulmonary Assessment Last Done: 07/21/24 12:36
[2024-07-21 12:32] LABS: % Basophils 0.7 % (0-2); % Eosinophils 0.3 % (0-6); % Immature Granulocytes 0.3 % (0-0.5); % Lymphocytes 25.2 % (20.5-51.1); % Monocytes 10.9 % (1.7-9.3); % Neutrophils 62.6 % (42.2-75.2); Absolute Lymphocytes 0.7 10^3/uL (1.2-3.4); Absolute Monocytes 0.3 10^3/uL (0.1-0.6); Absolute Neutrophils 1.8 10^3/uL (1.4-6.5); Hematocrit 37.8 % (37.0-47.0); Hemoglobin 11.9 g/dL (12.0-16.0); Mean Corp Hgb Conc. 31.5 g/dL (33.0-37.0); Mean Corpuscular Hgb 29.1 pg (27.0-31.0); Mean Corpuscular Volume 92.4 fL (81.0-99.0); Mean Platelet Volume 9.1 fL (7.4-10.4); Nucleated Red Blood Cells % 0 %; Platelet Count 192 10^3/uL (130-400); Red Blood Cell Count 4.09 10^6/uL (4.20-5.40); Red Cell Dist. Width 15.3 % (11.5-14.5); White Blood Cell Count 2.9 10^3/uL (4.8-10.8)
[2024-07-21 12:46] LABS: INR 0.93; PT 12.8 Sec (11.4-14.6)
[2024-07-21 12:51] LABS: ALT (SGPT) 42 U/L (0-35); AST (SGOT) 68 U/L (14-36); Albumin 3.7 g/dl (3.5-5.0); Alkaline Phosphatase 86 U/L (38-126); Blood Urea Nitrogen 11 mg/dl (7-17); Calcium 8.8 mg/dl (8.4-10.2); Carbon Dioxide 27 mmol/L (22-30); Chloride 104 mmol/L (98-107); Glucose 109 mg/dl (70-99); Potassium 4.4 mmol/L (3.5-5.1); Sodium 138 mmol/L (135-145); Total Bilirubin 0.3 mg/dl (0.2-1.3); Total Protein 6.3 g/dl (6.3-8.2); eGFR > 60.00
[2024-07-21] MEDS: DUONEB 3 ML INH ×2 (12:54)
[2024-07-21 12:56] LABS: COVID-19 Antigen Negative (Negative)
[2024-07-21 13:00] LABS: NT-proBNP 618 pg/ml; Troponin I < 0.012 ng/ml
[2024-07-21] MEDS: ROCEPHIN 2000 MG IV (15:03)
--- NOTE | 2024-07-21 15:05 | HPS.HSE ---
Addendum entered and electronically signed by Bernie Valles MD 07/21/24 22:57:
I saw and examined the patient.
The DIRECTOR OF MARKETING COMMUNICATIONS or PA's note was reviewed and I agree with the note.
Comment:
79F asthma, bronchiectasis, GERD, hyperlipidemia, HFpEF, SVT s/p ablation and anxiety/depression here with Flu and likely superimposed bacterial pneumonia.
Physical Exam
General: No acute distress appears comfortable at time of evaluation
HEENT: NormoCephalic, Moist mucous membranes, Atraumatic
Respiratory: Clear Non Labored Respirations on 2L nasal cannula supplementation
Cardiac: S1/S2 and Regular Rhythm; No Murmur, Rub or Gallop
GI: Soft, Non Tender, Non Distended and Normal Bowel Sounds; No Organomegaly
Musculoskeletal: No Clubbing, No Cyanosis and No Edema
Neuro: AOx3 conversant coherent
Psych: Calm and Intact Judgment/Insight
#Flu likely superimposed bacterial pna
#Asthma/Allergies
#GERD/Hiatal Hernia
#hyperlipidemia
#hx HFpEF
#Anxiety/Depression
Tele Admit
wean O2 as tolerated
start Tamiflu
cont empiric Ceftriaxone and Azithromycin
cont home inhalers
Duoneb prn
scheduled mucinex, prn robitussin Tessalon
PT/OT eval
Daily weights I/O
monitor respiratory status
Original Note:
Family Physician
-
Family Physician: Sangeetha Brunner
Chief Complaint
-
shortness of breath
History of Present Illness
Patient is a 79-year-old female with past medical history significant for asthma, GERD, hyperlipidemia, HFpEF, SVT s/p ablation and anxiety/depression who presented to [facility] ED for evaluation of shortness of breath and general not
feeling well. Patient reports that since last she has not felt well, she reports cough, decreased appetite, lethargy, shortness of breath and diarrhea. She denies any fever, chills, nausea, vomiting, constipation or urinary symtpoms.
Medical History
Past Medical History
Past Medical History: Reports Other
Additional Past Medical History:
Asthma / Allergies
GERD / Hiatal Hernia
hyperlipidemia
HFpEF
Breast Cancer s/p Lumpectomy, Chemo and XRT
Skin Cancer
Polycystic Liver Disease
SVT s/p Ablation
Anxiety / Depression
Past Surgical History: Reports Other
Additional Past Surgical History:
Left TKA
Right ANNIKA
Left Lumpectomy
SVT Ablation
Cataracts
Social History
Tobacco: Former Smoker (Quit smoking in 1974. Approx 10 pack years total.)
Alcohol: None
Drug: None
Family History
Family History: Not pertinent
Allergies / Home Medications
Allergies reflects when Allergies were last updated in [email or web address].
Home Medications with original date entered in [email or web address]
Allergy/Medication List:
Allergies
Allergy/AdvReac Type Severity Reaction Status Date / Time
pollen extracts Allergy Intermediate SEASONAL Verified 07/21/24 11:50
ALLERGIES
cat dander Allergy sob, Verified 07/21/24 11:50
wheezing
dog dander Allergy sob, Verified 07/21/24 11:50
wheezing
oxycodone Allergy nausea, Verified 07/21/24 11:50
vomiting
Home Medications
fluticasone propionate 50 mcg/actuation nasal spray,suspension 2 spray intranasal DAILYPRN PRN allergies 09/18/11
dfmtuvge-her-rtmql acid 0.4 mg-lycopene 300 mcg-lutein 250 mcg tablet (Centrum Silver) 1 ea PO DAILY 09/18/11
albuterol sulfate 90 mcg/actuation aerosol inhaler (Ventolin HFA) 2 puff inhalation R Q4HPRN PRN SOB 01/13/16
azelastine 137 mcg (0.1 %) nasal spray 2 spray intranasal BID Allergies 01/13/16
anastrozole 1 mg tablet 1 mg PO DAILY Hormonal Agent 06/26/22
famotidine 40 mg tablet 40 mg PO HS 06/26/22
montelukast 10 mg tablet 10 mg PO QPM 06/26/22
rosuvastatin 5 mg tablet 5 mg PO DAILY 06/26/22
Saccharomyces boulardii 250 mg capsule (Florastor) 250 mg PO DAILY 09/24/22
levocetirizine 5 mg tablet 5 mg PO QPM 09/24/22
biotin 1 mg capsule 1 mg PO DAILY Supplement 01/14/24
cholecalciferol (vitamin D3) 25 mcg (1,000 unit) tablet (Vitamin D3) 25 mcg PO DAILY 01/14/24
lansoprazole 30 mg capsule,delayed release 30 mg PO DAILY 01/14/24
lithium carbonate 300 mg tablet 300 mg PO BID 01/14/24
melatonin 3 mg tablet 3 mg PO HS 01/14/24
paroxetine HCl 10 mg tablet (Paxil) 10 mg PO DAILY 01/14/24
quetiapine 25 mg tablet 75 mg PO HS 01/14/24
acetaminophen 650 mg tablet,extended release 650 mg PO Q4HPRN PRN mild pain 07/21/24
alprazolam 0.25 mg tablet (Xanax) 0.25 mg PO HS 07/21/24
budesonide 160 mcg-glycopyr 9 mcg-formot 4.8 mcg/actuation HFA inhaler (Breztri Aerosphere) 2 inh inhalation R DAILY 07/21/24
ferrous sulfate 137 mg (45 mg iron) tablet,extended release 137 mg PO DAILY 07/21/24
guaifenesin 100 mg/5 mL oral liquid 200 mg PO QIDPRN PRN cough 07/21/24
Review of Systems
-
History Source: Patient
Constitutional: Reports Fatigue and Other (poor appetite )
EENT: Reports No Symptoms
Respiratory: Reports Cough and Trouble Breathing (shortness of breath )
Cardiac: Reports No Symptoms
Abdomen/GI: Reports Diarrhea and Anorexia
: Reports No Symptoms
Musculoskeletal: Reports No Symptoms
Skin: Reports No Symptoms
Neurological: Reports No Symptoms
Endocrine: Reports No Symptoms
Hematologic/Lymphatic: Reports No Symptoms
Psych: Reports No Symptoms
Physical Exam
Vital Signs
Vital Signs
Temp Pulse Resp BP Pulse Ox
98.5 F 67 26 113/71 95
07/21/24 11:48 07/21/24 13:00 07/21/24 13:00 07/21/24 11:48 07/21/24 12:52
Physical Exam
General: Well Developed, Well Nourished, No Apparent Distress, Comfortable and Poor Appetite
HEENT: NormoCephalic, Moist mucous membranes, Atraumatic, [place] Conjunctivae, Nose Appears Normal and Ears Appear Normal
Respiratory: Clear and Non Labored Respirations
Cardiac: S1/S2 and Regular Rhythm; No Murmur, Rub or Gallop
Breast: Deferred by me
GI: Soft, Non Tender, Non Distended and Normal Bowel Sounds; No Organomegaly
Rectal: Deferred by Provider
Genito-urinary: Deferred by me
Musculoskeletal: No Clubbing, No Cyanosis and No Edema
Skin: Warm and IV/Catheter Site; No Rash
Neuro: Awake, Alert, AO x 3 and Nonfocal/grossly intact
Psych: Calm and Intact Judgment/Insight
Laboratory Results
-
07/21/24 12:10
07/21/24 12:10
Laboratory Results
PT 12.8 Sec (11.4-14.6) 07/21/24 12:10
INR 0.93 07/21/24 12:10
Total Bilirubin 0.3 mg/dl (0.2-1.3) 07/21/24 12:10
AST 68 U/L (14-36) H 07/21/24 12:10
ALT 42 U/L (0-35) H 07/21/24 12:10
Alkaline Phosphatase 86 U/L (38-126) 07/21/24 12:10
Troponin I < 0.012 ng/ml 07/21/24 12:10
Data Reviewed
-
Diagnostic Radiology: Report Reviewed by me (CXR: Small left pleural effusion with associated atelectasis and/or pneumonia.)
CT Scan: Report Reviewed by me (Chest: 1. SEVERE LEFT LOWER LOBE and MODERATE RIGHT LOWER LOBE PNEUMONIA which has increased since 06/12/2024. 2. SEVERE CYLINDRICAL BRONCHIECTASIS in both lower lobes. 3. Mild radiation pneumonitis in the left
lung apex. 4. 4.5 mm solid pulmonary nodule in the right upper lobe which appears)
Medical Tests (Nuc Med, Echo, EKG etc): Report Reviewed by me (EKG: NORMAL SINUS RHYTHM LOW VOLTAGE QRS)
Lab Data: Labs Reviewed by me (WBC 2.9, AST 68, ALT 42)
Impression/Plan
-
IMPRESSION/PLAN:
#pneumonia 2/2 influenza
WBC 2.9
Covid: Negative
Influenza: A positive
CXR: Small left pleural effusion with associated atelectasis and/or pneumonia.
Chest CT: 1. SEVERE LEFT LOWER LOBE and MODERATE RIGHT LOWER LOBE PNEUMONIA which has increased since 06/12/2024.
2. SEVERE CYLINDRICAL BRONCHIECTASIS in both lower lobes.
3. Mild radiation pneumonitis in the left lung apex.
4. 4.5 mm solid pulmonary nodule in the right upper lobe which appears new from 06/12/2024.
5. Mild mediastinal lymphadenopathy.
6. Moderate calcific atherosclerotic plaque in the coronary arteries.
7. Aberrant right subclavian artery containing severe calcific atherosclerotic plaque.
8. Moderate to large hiatal hernia.
9. Previous left breast lumpectomy.
10. Polycystic liver disease.
11. 1.9 cm left adrenal adenoma.
- Admit to telemetry
- Tamiflu
- IV antibiotics
- supportive care
- Consult PT/OT
#Asthma/Allergies
- continue albuterol HFA, azelastine, Breztri, fluticasone, guaifenesin, levocetirizine and montelukast
#GERD/Hiatal Hernia
- continue lansoprazole and famotidine
#hyperlipidemia
- continue rosuvastatin
#HFpEF
ECHO (01/14/2024): Normal left ventricular size and function. Normal regional wall motion. Mild concentric left ventricular hypertrophy. LV ejection fraction is 60-65%.
Mild tricuspid regurgitation. Estimated pulmonary artery pressure of 30-35 mmHg.
Echolucent mass in the liver noted in prior echo
Compared to the previous echo from May 2022, there is no significant change.
- daily weights
- I & Os
#SVT
s/p Ablation
#Anxiety/Depression
- continue alprazolam, lithium, paroxetine and quetiapine
#Hx Breast Cancer s/p Lumpectomy, Chemo and XRT
#Hx Skin Cancer
Code status: Full code
DVT prophylaxis: Lovenox sq
[2024-07-21] MEDS: ZITHROMAX INFUSION 250 IV (15:17)
[2024-07-21] MEDS: SYMBICORT 160/4.5 MCG INHALER INH (20:55)
[2024-07-21] MEDS: LOVENOX 40 MG SC (20:57)
[2024-07-21] MEDS: ESKALITH REGULAR RELEASE 300 MG PO (20:58)
[2024-07-21] MEDS: MUCINEX 600 MG PO (20:58)
[2024-07-21] MEDS: TAMIFLU 75 MG PO (20:58)
[2024-07-21] MEDS: MELATONIN 3 MG PO (21:01)
[2024-07-21] MEDS: XANAX 0.25 MG PO (21:01)
[2024-07-21] MEDS: SEROQUEL 75 MG PO (21:02)
[2024-07-21] MEDS: SINGULAIR 10 MG PO (21:03)
[2024-07-21] MEDS: ZYRTEC 5 MG PO (21:04)
[2024-07-21] MEDS: PEPCID 40 MG PO (23:23)
[2024-07-22] VITALS (8 sets, daily range): BP systolic 116–149; BP diastolic 52–79; PULSE 82; O2SAT 95; BMI 27.6
--- NOTE | 2024-07-22 06:53 | W.PN.HOSP.TC ---
Today's Communication/Plan
-
wean O2 supplementation as tolerated
duoneb R QID
Pulm eval
check CT left hip thigh
lidocaine patch
start gabapentin 100 mg TID
cont abx Tamiflu
Assessment / Plan
Assessment / Plan
Physical Exam
General: No acute distress appears comfortable at time of evaluation
HEENT: NormoCephalic, Moist mucous membranes, Atraumatic
Respiratory: Clear Non Labored Respirations on 2L nasal cannula supplementation
Cardiac: S1/S2 and Regular Rhythm; No Murmur, Rub or Gallop
GI: Soft, Non Tender, Non Distended and Normal Bowel Sounds; No Organomegaly
Musculoskeletal: No Clubbing, No Cyanosis and No Edema
Neuro: AOx3 conversant coherent
Psych: Calm and Intact Judgment/Insight
79F asthma, bronchiectasis, GERD, hyperlipidemia, HFpEF, SVT s/p ablation and anxiety/depression here with Flu and likely superimposed bacterial pneumonia.
#pneumonia 2/2 influenza
WBC 2.9
Covid: Negative
Influenza: A positive
CXR: Small left pleural effusion with associated atelectasis and/or pneumonia.
Chest CT: 1. SEVERE LEFT LOWER LOBE and MODERATE RIGHT LOWER LOBE PNEUMONIA which has increased since 06/12/2024.
2. SEVERE CYLINDRICAL BRONCHIECTASIS in both lower lobes.
3. Mild radiation pneumonitis in the left lung apex.
4. 4.5 mm solid pulmonary nodule in the right upper lobe which appears new from 06/12/2024.
5. Mild mediastinal lymphadenopathy.
6. Moderate calcific atherosclerotic plaque in the coronary arteries.
7. Aberrant right subclavian artery containing severe calcific atherosclerotic plaque.
8. Moderate to large hiatal hernia.
9. Previous left breast lumpectomy.
10. Polycystic liver disease.
11. 1.9 cm left adrenal adenoma.
- Tele admit
- Tamiflu
- cont antibiotics
- supportive care
- Consult PT/OT appreciated
-Pulm eval requested
#Left Thigh Pain/Sciatica
check CT pelvis, LLE thigh
Lidocaine patch medial Lt thigh pain
Gabapentin 100 mg TID start
#Asthma/Allergies
- continue albuterol HFA, azelastine, Breztri, fluticasone, guaifenesin, levocetirizine and montelukast
#GERD/Hiatal Hernia
- continue lansoprazole and famotidine
#hyperlipidemia
- continue rosuvastatin
#HFpEF
ECHO (01/14/2024): Normal left ventricular size and function. Normal regional wall motion. Mild concentric left ventricular hypertrophy. LV ejection fraction is 60-65%.
Mild tricuspid regurgitation. Estimated pulmonary artery pressure of 30-35 mmHg.
Echolucent mass in the liver noted in prior echo
Compared to the previous echo from May 2022, there is no significant change.
- daily weights
- I & Os
#SVT
s/p Ablation
#Anxiety/Depression
- continue alprazolam, lithium, paroxetine and quetiapine
#Hx Breast Cancer s/p Lumpectomy, Chemo and XRT
#Hx Skin Cancer
PT/OT appreciated SNF rehab
Code status: Full code
DVT prophylaxis: Lovenox sq
I spent a total of 50 minutes with the patient or on the floor. More than 50% of this time involved counseling and coordination of care.
Anticipated Discharge: 24 - 48 hours
Subjective/Interval History
-
Date of Service: July 22, 2024
No acute distress sitting up comfortably in chair. Reports left medial thigh pain tenderness. Further reports shooting pain from left buttocks radiating down leg with exertion/ambulation
Objective Data
-
Labs:
Laboratory Results
07/22/24
06:00
WBC Pending
Hgb Pending
Hct Pending
Plt Count Pending
Sodium Pending
Potassium Pending
Chloride Pending
Carbon Dioxide Pending
BUN Pending
Creatinine Pending
Glucose Pending
Calcium Pending
Vital Signs:
Vital Signs
Temp Pulse Resp BP Pulse Ox
98.8 F 67 18 120/73 97
07/22/24 03:05 07/22/24 03:05 07/22/24 03:05 07/22/24 03:05 07/22/24 03:05
I&O
07/20/24 07/21/24 07/22/24
06:59 06:59 06:59
Intake Total 240 / 240
Balance 240 / 240
[2024-07-22] MEDS: SYMBICORT 160/4.5 MCG INHALER 2 PUFF INH ×2 (07:58→21:18)
--- NOTE | 2024-07-22 07:58 | DOWNTIME ---
There was a [employer] Downtime on 07/22/2024 from 0100 to 07/23/2023 at 0420 . Downtime documentation of patient's care, including medication administrations, has been reconciled in the electronic record per guidelines. Refer to the
patient's paper chart under the miscellaneous tab to see printed paper medication records and downtime forms.
[2024-07-22] MEDS: SPIRIVA RESPIMAT 2.5 MCG 2 PUFF INH (07:59)
[2024-07-22 08:28] LABS: Hemoglobin 11.7 g/dL (12.0-16.0); Mean Corp Hgb Conc. 31.6 g/dL (33.0-37.0); Mean Corpuscular Hgb 28.9 pg (27.0-31.0); Mean Corpuscular Volume 91.4 fL (81.0-99.0); Mean Platelet Volume 9.3 fL (7.4-10.4); Platelet Count 175 10^3/uL (130-400); Red Blood Cell Count 4.05 10^6/uL (4.20-5.40); Red Cell Dist. Width 15.5 % (11.5-14.5); White Blood Cell Count 4.3 10^3/uL (4.8-10.8)
[2024-07-22 08:53] LABS: Blood Urea Nitrogen 7 mg/dl (7-17); Calcium 8.2 mg/dl (8.4-10.2); Carbon Dioxide 25 mmol/L (22-30); Chloride 109 mmol/L (98-107); Estimated Creatinine Clearance 77 ml/min; Glucose 102 mg/dl (70-99); Magnesium 2.3 mg/dl (1.6-2.3); Phosphorus 2.8 mg/dl (2.5-4.5); Potassium 4.3 mmol/L (3.5-5.1); Sodium 139 mmol/L (135-145); eGFR > 60.00
[2024-07-22] MEDS: FLORASTOR 250 MG PO (09:14)
[2024-07-22] MEDS: PROTONIX 40 MG PO (09:14)
[2024-07-22] MEDS: VITAMIN D3 (cholecalciferol) 25 MCG PO (09:14)
[2024-07-22] MEDS: MUCINEX 600 MG PO ×2 (09:15→19:34)
[2024-07-22] MEDS: THERAGRAN 1 TABLET PO (09:15)
[2024-07-22] MEDS: FEOSOL 325 MG PO (09:15)
[2024-07-22] MEDS: PAXIL 10 MG PO (09:15)
[2024-07-22] MEDS: ESKALITH REGULAR RELEASE 300 MG PO ×2 (09:15→19:34)
[2024-07-22] MEDS: CRESTOR 5 MG PO (09:20)
[2024-07-22] MEDS: TAMIFLU 75 MG PO ×2 (09:20→19:34)
[2024-07-22] MEDS: ARIMIDEX 1 MG PO (09:21)
[2024-07-22] MEDS: ROBITUSSIN 200 MG PO (09:23)
[2024-07-22] MEDS: LIDOCAINE 4% PATCH 1 PATCH TOPICAL (11:12)
[2024-07-22] MEDS: NEURONTIN 100 MG PO ×3 (11:12→21:38)
[2024-07-22] MEDS: DUONEB 3 ML INH ×3 (11:52→21:18)
--- NOTE | 2024-07-22 14:57 | CM ---
Patient seen at bedside.
+Influenza, on
IA completed
Lives with in a multi story home, 2 steps to enter, 9 steps, landing & another 9 steps to 2nd floor
PLOF: Independent, states did not use assistive device
DME: cane, walker, shower chair
Denies VN/outpatient PT in past
PT rec SNF
Reviewed options, list given. Will review.
[facility] stated her was [facility] in past.
PCP: Sangeetha Brunner
[place] [facility]
PLAN:
--- NOTE | 2024-07-22 14:57 | CON.PUL ---
Consultation
Consultation Request
Date/Time Consultation Requested: 07/22
Date/Time Consultation Performed: 07/22
Reason for Consultation: Pneumonia, abnormal imaging, bronchiectasis
Medical History
-
History of Present Illness:
History obtained from the patient, reviewing both inpatient and outpatient records. Very pleasant 79-year-old female with history of bronchiectasis, bronchiolitis, who presents with worsening shortness of breath, URI symptoms for 6 to 7 days. With
this she also had noted lower extremity swelling. She is on baseline nebulizer therapy at home, states that at baseline coughed up about a cup of mucus, no blood. She is unaware of any fevers, chills, sweats. She admits to new onset diarrhea for
the past week which she does take a stool softener. Denies any emesis, falls, syncope, obvious dysphagia, sick contacts. Upon arrival to [facility], afebrile, pulse 74, breathing at 20, blood pressure 113/71, 91%. She received DuoNebs,
azithromycin, ceftriaxone. Chest x-ray suggestive of pneumonia. Patient also found to be positive influenza A. We are asked to comment on pulmonary process
.
PMH: History of COPD, chronic bronchitis with bronchiolitis/bronchiectasis, moderate persistent asthma, heart failure, rhinitis, GERD/hiatal hernia, skin cancer, polycystic liver disease, breast cancer with lumpectomy/chemo/XRT 2017, left TKA 2017,
right ANNIKA
Past Medical History
Past Medical History: None (See above)
Past Surgical History: None (See above)
Social History
Tobacco: Former Smoker (Quit in the 1970s, [id number])
Alcohol: Occasional
Drug: None
Personal:
Living: With Family
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
Family History
Family History: Other (Father with history of lung cancer, mother with COPD. Brother with lung cancer. 3 children healthy)
Allergies / Home Medications
Allergies
Allergy/AdvReac Type Severity Reaction Status Date / Time
cat dander Allergy sob, Verified 07/21/24 11:50
wheezing
dog dander Allergy sob, Verified 07/21/24 11:50
wheezing
oxycodone Allergy nausea, Verified 07/21/24 11:50
vomiting
pollen extracts Allergy SEASONAL Verified 07/21/24 20:05
ALLERGIES
Home Medications
�Medication �Instructions �Recorded �Confirmed �Last Taken �Type
fluticasone propionate 50 2 spray intranasal DAILYPRN PRN 09/18/11 07/21/24 10/14/22 20:00 History
mcg/actuation nasal allergies
spray,suspension
qpzwjivt-jtq-guwge acid 0.4 1 ea PO DAILY Supplement 09/18/11 07/21/24 07/21/24 History
mg-lycopene 300 mcg-lutein 250 mcg
tablet (Centrum Silver)
albuterol sulfate 90 mcg/actuation 2 puff inhalation R Q4HPRN PRN SOB 01/13/16 07/21/24 07/15/22 17:00 History
aerosol inhaler (Ventolin HFA)
azelastine 137 mcg (0.1 %) nasal 2 spray intranasal BID Allergies 01/13/16 07/21/24 07/21/24 History
spray
anastrozole 1 mg tablet 1 mg PO DAILY Hormonal Agent 06/26/22 07/21/24 07/21/24 History
famotidine 40 mg tablet 40 mg PO HS Gastrointestinal Issue 06/26/22 07/21/24 07/20/24 History
montelukast 10 mg tablet 10 mg PO QPM Allergies 06/26/22 07/21/24 07/20/24 History
rosuvastatin 5 mg tablet 5 mg PO DAILY High Cholesterol 06/26/22 07/21/24 07/21/24 History
Saccharomyces boulardii 250 mg 250 mg PO DAILY Gastrointestinal 09/24/22 07/21/24 07/21/24 History
capsule (Florastor) Issue
levocetirizine 5 mg tablet 5 mg PO QPM Allergies 05/07/21/24 07/20/24 History
biotin 1 mg capsule 1 mg PO DAILY Supplement 01/14/24 07/21/24 07/21/24 History
cholecalciferol (vitamin D3) 25 25 mcg PO DAILY Supplement 01/14/24 07/21/24 07/21/24 History
mcg (1,000 unit) tablet (Vitamin
D3)
lansoprazole 30 mg capsule,delayed 30 mg PO DAILY Gastrointestinal 01/14/24 07/21/24 07/21/24 History
release Issue
lithium carbonate 300 mg tablet 300 mg PO BID Mental Health/Anxiety 01/14/24 07/21/24 07/21/24 History
melatonin 3 mg tablet 3 mg PO HS Sleep 01/14/24 07/21/24 07/20/24 History
paroxetine HCl 10 mg tablet (Paxil) 10 mg PO DAILY Mental 01/14/24 07/21/24 07/21/24 History
Health/Anxiety
quetiapine 25 mg tablet 75 mg PO HS Mental Health/Anxiety 01/14/24 07/21/24 07/20/24 History
acetaminophen 650 mg 650 mg PO Q4HPRN PRN mild pain 07/21/24 07/21/24 07/14/24 History
tablet,extended release
alprazolam 0.25 mg tablet (Xanax) 0.25 mg PO HS Mental Health/Anxiety 07/21/24 07/21/24 07/20/24 History
budesonide 160 mcg-glycopyr 9 2 inh inhalation R DAILY 07/21/24 07/21/24 07/21/24 History
mcg-formot 4.8 mcg/actuation HFA Lung/Breathing Issues
inhaler (Breztri Aerosphere)
ferrous sulfate 137 mg (45 mg 137 mg PO DAILY Supplement 07/21/24 07/21/24 07/21/24 History
iron) tablet,extended release
guaifenesin 100 mg/5 mL oral liquid 200 mg PO QIDPRN PRN cough 07/21/24 07/21/24 07/21/24 History
Review of Systems
-
All other systems: Negative unless noted
Vitals / Labs / Diagnostic Testing
Vital Signs
Temp Pulse Resp BP Pulse Ox
98.0 F 78 18 120/75 98
07/22/24 11:20 07/22/24 11:52 07/22/24 11:52 07/22/24 11:20 07/22/24 11:20
Lab Data
07/22/24 07:26
07/22/24 07:26
Microbiology
07/21/24 12:10 Nasal Swab Influenza Types A & B ([facility]) - Final
Influenza A Positive, NAAT
Diagnostic Testing:
Physical Exam
-
HEENT: Normocephalic and Anicteric
Cardiovascular: S1/S2, Regular Rhythm, Murmur (n), Rub (n), Peripheral Edema (tr) and Calf Tenderness (n)
Respiratory: Wheeze (n), Rales (Bibasilar), Rhonchi (few) and Non-Labored Respirations
GI: Soft, Non Distended and Non Tender
Neurology: Awake, Alert and No Motor Deficits (Able to sit up without assistance)
Skin: Good Color
General: Comfortable
Assessment
-
79-year-old female with longstanding history of asthma, interstitial disease with bronchiolitis/bronchiectasis, presents with 1 week of increased pulmonary symptoms found to have influenza A. Also has loose stool but takes stool softener at home.
Has not been on antibiotics recently. We are asked to help with pulmonary process
Acute influenza A
Subjective dyspnea, bronchitis x 1 week
Bilateral patchy pneumonitis per imaging 07/21/2024
History of bronchiolitis/bronchiectasis per imaging
Hospitalized January 2024 with bronchitis
Loose stools/diarrhea for 1 week
Leukopenia
Anemia
Left-sided sciatica, thigh pain
Conditions present prior to admission:
Asthma-moderate persistent, no significant eosinophil elevation
Chronic rhinitis
GERD.
Hiatal hernia.
Skin cancer.
Polycystic liver.
SVT status post ablation.
Anxiety.
Depression.
Breast cancer-lumpectomy/chemo/XRT-2017
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 Right ANNIKA. Cataract-2014
Family history COPD-mother
Family history lung cancer-father
Plan/recommendations
Patient appears to be nontoxic
Chest exam with crackles and rhonchi
Patient with chronic bronchiolitis, bronchiectasis
CT imaging with acute worsening
Suspect primary secondary to influenza A
Cannot rule out disha mitten bacterial infection
Leukopenia noted
Moving forward
Difficult to differentiate between viral and bacterial process but given bronchiectasis, bronchiolitis, agree with empiric antibiotic therapy
Remains on azithromycin/ceftriaxone
Agree with antiviral therapy for now, remains on Tamiflu
Sputum culture if able
Note that culture from January 2025 AFB/fungus negative, bacterial negative
Follow-up loose stool/diarrhea.
May require additional testing, C. difficile. Patient states today stool/diarrhea has improved
Patient typically coughs up cough of mucus a day
She does not have vest therapy at home
She may benefit from more aggressive nebulized therapy but for now DuoNebs is adequate 4 times daily
And budesonide twice daily
Stop Symbicort/Spiriva while on nebulized DuoNebs. Outpatient regimen includes Breztri
Attempt to obtain sputum culture
Acapella device
No indication for systemic steroids at this time
Immunoglobulin studies January 2024 normal, normal IgE
No clear evidence of significant eosinophilia
Pelvic and left lower extremity imaging noted
Patient complaining of left thigh, sciatica pain
May require MRI imaging of lumbar sacral spine. Will be deferred to primary service
Echocardiogram 01/14/2024-EF 60-65%, PA systolic 30-35, no significant change from May 2022
Doubt component of heart failure at this time although patient does describe lower extremity swelling, currently improved
DVT prophylaxis: Remains on enoxaparin
GI prophylaxis: Remains on pantoprazole, takes famotidine/lansoprazole as outpatient
PT/OT, encourage ambulation
Will follow
Diagnostic Data:
Chest x-ray 04/15/2017-use right subclavian port, no pneumothorax, biapical scarring
Chest x-ray 02/04/2020-NAD
Chest x-ray 10/18/2021-NAD
CXR 11/15/2023: No acute disease. Moderate hiatal hernia, enlarged.
Chest x-ray 01/13/2024-NAD, moderate-sized hiatal hernia
CT chest 07/21/2024: Patchy bronchiolitis, bronchiectasis with mucoid impaction with worsening bibasilar infiltrate. There is a 5 mm right upper lobe nodule which is new
CT chest 12/12/[id number] opacifications throughout bilateral lungs with bibasilar bronchiectasis and mucoid impactions, apparent right subclavian artery and retroesophageal course and mild dilation of proximal subclavian artery, 2.8 cm
low-density lesion right thyroid lobe, moderate hiatal hernia
Lower extremity ultrasound 01/13/2024-no evidence for DVT in lower extremities bilaterally
Echo 05/16/2022: Small LV size. Normal systolic function. EF 63%. Mild concentric LVH.� An incidental finding noted on the subcostal view is that of a large sonolucent mass in the liver that was noted on's CAT scan in 2019
PFT 07/14/2024: FVC 1.81/68%, FEV1 1.36/69%, ratio 75. TLC 3.39/66%, DLCO 44%. This is overall stable
[place] 12/04/23: FVC 1.55/57%, FEV1 1.13/56%, ratio 73%, no significant BD response.� Suggestive of moderate restrictive pattern.
[2024-07-22] MEDS: STERILE WATER FOR INJECTION 10 ML IV (16:22)
[2024-07-22] MEDS: ROCEPHIN 1000 MG IV (16:23)
[2024-07-22] MEDS: ZITHROMAX INFUSION 250 IV (16:23)
[2024-07-22] MEDS: LOVENOX 40 MG SC (17:56)
[2024-07-22] MEDS: SINGULAIR 10 MG PO (17:57)
[2024-07-22] MEDS: XANAX 0.25 MG PO (21:38)
[2024-07-22] MEDS: ZYRTEC 5 MG PO (21:38)
[2024-07-22] MEDS: SEROQUEL 75 MG PO (21:38)
[2024-07-22] MEDS: MELATONIN 3 MG PO (21:38)
[2024-07-22] MEDS: PEPCID 40 MG PO (21:38)
[2024-07-22] MEDS: OCEAN, SALINE MIST 1 SPRAYS NASAL (21:38)
[2024-07-23] VITALS (7 sets, daily range): BP systolic 90–129; BP diastolic 52–70; O2SAT 94; BMI 27.7
[2024-07-23] MEDS: ROBITUSSIN 200 MG PO (04:24)
[2024-07-23] MEDS: DUONEB 3 ML INH ×4 (07:21→19:47)
[2024-07-23] MEDS: SPIRIVA RESPIMAT 2.5 MCG 2 PUFF INH (07:21)
--- NOTE | 2024-07-23 07:21 | W.PN.HOSP.TC ---
Today's Communication/Plan
-
cont abx, antiviral
lidocaine patch switched to bengay-like cream
PT/OT
pain control
wean O2 supplementation as tolerated
Assessment / Plan
Assessment / Plan
Physical Exam
General: No acute distress appears comfortable at time of evaluation
HEENT: NormoCephalic, Moist mucous membranes, Atraumatic
Respiratory: Clear Non Labored Respirations on 2L nasal cannula supplementation
Cardiac: S1/S2 and Regular Rhythm; No Murmur, Rub or Gallop
GI: Soft, Non Tender, Non Distended and Normal Bowel Sounds; No Organomegaly
Musculoskeletal: No Clubbing, No Cyanosis and No Edema
Neuro: AOx3 conversant coherent
Psych: Calm and Intact Judgment/Insight
79F asthma, bronchiectasis, GERD, hyperlipidemia, HFpEF, SVT s/p ablation and anxiety/depression here with Flu and likely superimposed bacterial pneumonia.
#pneumonia 2/2 influenza
#likely superimposed bacterial pneumonia
WBC 2.9
Covid: Negative
Influenza: A positive
CXR: Small left pleural effusion with associated atelectasis and/or pneumonia.
Chest CT: 1. SEVERE LEFT LOWER LOBE and MODERATE RIGHT LOWER LOBE PNEUMONIA which has increased since 06/12/2024.
2. SEVERE CYLINDRICAL BRONCHIECTASIS in both lower lobes.
3. Mild radiation pneumonitis in the left lung apex.
4. 4.5 mm solid pulmonary nodule in the right upper lobe which appears new from 06/12/2024.
5. Mild mediastinal lymphadenopathy.
6. Moderate calcific atherosclerotic plaque in the coronary arteries.
7. Aberrant right subclavian artery containing severe calcific atherosclerotic plaque.
8. Moderate to large hiatal hernia.
9. Previous left breast lumpectomy.
10. Polycystic liver disease.
11. 1.9 cm left adrenal adenoma.
- Tele admit
- Tamiflu
- cont antibiotics
- supportive care
- Consult PT/OT appreciated
-Pulm eval requested
#Left Thigh Pain/Sciatica
CT pelvis, LLE thigh appreciated proximal hamstring tendinopathy likely contributing to pain
Lidocaine patch medial Lt thigh pain, patient however notes no benefit, switched to bengay-like cream QID
Gabapentin 100 mg TID started, patient notes significant improvement in pain since start, cont
#Asthma/Allergies
- continue albuterol HFA, azelastine, Breztri, fluticasone, guaifenesin, levocetirizine and montelukast
#GERD/Hiatal Hernia
- continue lansoprazole and famotidine
#hyperlipidemia
- continue rosuvastatin
#HFpEF
ECHO (01/14/2024): Normal left ventricular size and function. Normal regional wall motion. Mild concentric left ventricular hypertrophy. LV ejection fraction is 60-65%.
Mild tricuspid regurgitation. Estimated pulmonary artery pressure of 30-35 mmHg.
Echolucent mass in the liver noted in prior echo
Compared to the previous echo from May 2022, there is no significant change.
- daily weights
- I & Os
#SVT
s/p Ablation
#Anxiety/Depression
- continue alprazolam, lithium, paroxetine and quetiapine
#Hx Breast Cancer s/p Lumpectomy, Chemo and XRT
#Hx Skin Cancer
PT/OT appreciated SNF rehab
Code status: Full code
DVT prophylaxis: Lovenox sq
I spent a total of 45 minutes with the patient or on the floor. More than 50% of this time involved counseling and coordination of care.
Anticipated Discharge: 24 - 48 hours
Subjective/Interval History
-
Date of Service: July 23, 2024
reports significant improvement in LLE pain.
Objective Data
-
Labs:
Laboratory Results
07/23/24
07:02
WBC Pending
Hgb Pending
Hct Pending
Plt Count Pending
Sodium Pending
Potassium Pending
Chloride Pending
Carbon Dioxide Pending
BUN Pending
Creatinine Pending
Glucose Pending
Calcium Pending
Vital Signs:
Vital Signs
Temp Pulse Resp BP Pulse Ox
97.2 F 69 16 90/52 100
07/23/24 03:05 07/23/24 03:05 07/23/24 03:05 07/23/24 03:05 07/23/24 03:05
I&O
07/22/24 07/23/24 07/24/24
06:59 06:59 06:59
Intake Total 240 / 240 1680 / 1680
Balance 240 / 240 1680 / 1680
[2024-07-23] MEDS: SYMBICORT 160/4.5 MCG INHALER 2 PUFF INH (07:22)
[2024-07-23 08:03] LABS: Hematocrit 34.9 % (37.0-47.0); Hemoglobin 11.1 g/dL (12.0-16.0); Mean Corp Hgb Conc. 31.8 g/dL (33.0-37.0); Mean Corpuscular Volume 91.1 fL (81.0-99.0); Mean Platelet Volume 9.6 fL (7.4-10.4); Platelet Count 187 10^3/uL (130-400); Red Blood Cell Count 3.83 10^6/uL (4.20-5.40); Red Cell Dist. Width 15.2 % (11.5-14.5); White Blood Cell Count 4.7 10^3/uL (4.8-10.8)
[2024-07-23] MEDS: THERAGRAN 1 TABLET PO (08:08)
[2024-07-23] MEDS: ESKALITH REGULAR RELEASE 300 MG PO ×2 (08:08→20:51)
[2024-07-23] MEDS: FLORASTOR 250 MG PO (08:08)
[2024-07-23] MEDS: CRESTOR 5 MG PO (08:08)
[2024-07-23] MEDS: PROTONIX 40 MG PO (08:08)
[2024-07-23] MEDS: VITAMIN D3 (cholecalciferol) 25 MCG PO (08:08)
[2024-07-23] MEDS: NEURONTIN 100 MG PO ×3 (08:09→21:20)
[2024-07-23] MEDS: LIDOCAINE 4% PATCH 1 PATCH TOPICAL (08:09)
[2024-07-23] MEDS: ARIMIDEX 1 MG PO (08:09)
[2024-07-23] MEDS: MUCINEX 600 MG PO ×2 (08:09→20:51)
[2024-07-23] MEDS: PAXIL 10 MG PO (08:09)
[2024-07-23] MEDS: FEOSOL 325 MG PO (08:09)
[2024-07-23] MEDS: TAMIFLU 75 MG PO ×2 (08:09→20:51)
[2024-07-23 08:31] LABS: Blood Urea Nitrogen 11 mg/dl (7-17); Calcium 8.4 mg/dl (8.4-10.2); Carbon Dioxide 25 mmol/L (22-30); Chloride 109 mmol/L (98-107); Estimated Creatinine Clearance 77 ml/min; Glucose 91 mg/dl (70-99); Magnesium 2.4 mg/dl (1.6-2.3); Potassium 4.1 mmol/L (3.5-5.1); Sodium 138 mmol/L (135-145); eGFR > 60.00
--- NOTE | 2024-07-23 09:08 | W.PN.PUL3 ---
Today's Communication / Plan
-
Budesonide, duo nebs
Hold Spiriva/Symbicort
Continue antibiotics, antiviral
Wean oxygen
Assessment
-
79-year-old female with longstanding history of asthma, interstitial disease with bronchiolitis/bronchiectasis, presents with 1 week of increased pulmonary symptoms found to have influenza A. Also has loose stool but takes stool softener at home.
Has not been on antibiotics recently. We are asked to help with pulmonary process
Acute influenza A
Subjective dyspnea, bronchitis x 1 week
Bilateral patchy pneumonitis per imaging 07/21/2024
History of bronchiolitis/bronchiectasis per imaging
Hospitalized January 2024 with bronchitis
Loose stools/diarrhea for 1 week
Leukopenia
Anemia
Left-sided sciatica, thigh pain
Conditions present prior to admission:
Asthma-moderate persistent, no significant eosinophil elevation
Chronic rhinitis
GERD.
Hiatal hernia.
Skin cancer.
Polycystic liver.
SVT status post ablation.
Anxiety.
Depression.
Breast cancer-lumpectomy/chemo/XRT-2016
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 Right ANNIKA. Cataract-2014
Family history COPD-mother
Family history lung cancer-father
Plan/recommendations
Patient appears to be nontoxic
Chest exam improved with less crackles, rhonchi resolved
Patient with chronic bronchiolitis, bronchiectasis
CT imaging with acute worsening
Suspect primary secondary to influenza A
Cannot rule out bacterial infection
Leukopenia noted
Moving forward
Difficult to differentiate between viral and bacterial process but given bronchiectasis, bronchiolitis, agree with empiric antibiotic therapy
Remains on azithromycin/ceftriaxone
Agree with antiviral therapy for now, remains on Tamiflu
Sputum culture if able
Note that culture from January 2025 AFB/fungus negative, bacterial negative
Follow-up loose stool/diarrhea, Improved today.
Patient typically coughs up cough of mucus a day
She does not have vest therapy at home
She may benefit from more aggressive nebulized therapy but for now DuoNebs is adequate 4 times daily
Continue budesonide twice daily
Stop Symbicort/Spiriva while on nebulized DuoNebs. Outpatient regimen includes Breztri
Attempt to obtain sputum culture
Acapella device
No indication for systemic steroids at this time
Immunoglobulin studies January 2024 normal, normal IgE
No clear evidence of significant eosinophilia
Pelvic and left lower extremity imaging noted
Patient complaining of left thigh, sciatica pain
May require MRI imaging of lumbar sacral spine. Will be deferred to primary service
Echocardiogram 01/14/2024-EF 60-65%, PA systolic 30-35, no significant change from May 2022
Doubt component of heart failure at this time although patient does describe lower extremity swelling, currently improved
DVT prophylaxis: Remains on enoxaparin
GI prophylaxis: Remains on pantoprazole, takes famotidine/lansoprazole as outpatient
PT/OT, encourage ambulation
Will follow
Diagnostic Data:
Chest x-ray 04/15/2017-use right subclavian port, no pneumothorax, biapical scarring
Chest x-ray 02/04/2020-NAD
Chest x-ray 10/18/2021-NAD
CXR 11/15/2023: No acute disease. Moderate hiatal hernia, enlarged.
Chest x-ray 01/13/2024-NAD, moderate-sized hiatal hernia
CT chest 07/21/2024: Patchy bronchiolitis, bronchiectasis with mucoid impaction with worsening bibasilar infiltrate. There is a 5 mm right upper lobe nodule which is new
CT chest 12/12/[id number]-bud opacifications throughout bilateral lungs with bibasilar bronchiectasis and mucoid impactions, apparent right subclavian artery and retroesophageal course and mild dilation of proximal subclavian artery, 2.8 cm
low-density lesion right thyroid lobe, moderate hiatal hernia
Lower extremity ultrasound 01/13/2024-no evidence for DVT in lower extremities bilaterally
Echo 05/16/2022: Small LV size. Normal systolic function. EF 63%. Mild concentric LVH.� An incidental finding noted on the subcostal view is that of a large sonolucent mass in the liver that was noted on's CAT scan in 2019
PFT 07/14/2024: FVC 1.81/68%, FEV1 1.36/69%, ratio 75. TLC 3.39/66%, DLCO 44%. This is overall stable
[place] 12/04/23: FVC 1.55/57%, FEV1 1.13/56%, ratio 73%, no significant BD response.� Suggestive of moderate restrictive pattern.
Subjective Data
-
Date of Service:
Date of Service: July 23, 2024
Subjective:
Patient still complaining of fatigue. Has mild dry cough, denies chest pain, nausea, abdominal pain. Denies any loose stool today.
Objective Data
Data Reviewed
Vital Signs / I&O / Oxygen:
Vital Signs
Temp Pulse Resp BP Pulse Ox
97.4 F 73 16 109/58 97
07/23/24 07:20 07/23/24 07:27 07/23/24 07:27 07/23/24 07:20 07/23/24 07:27
Intake and Output
07/22/24 07/23/24 07/24/24
06:59 06:59 06:59
Intake Total 240 / 240 1680 / 1680
Balance 240 / 240 1680 / 1680
SaO2 97
Nasal Cannula flow liters per 3
minute
Physical Exam
General: Comfortable
HEENT: Normocephalic and Anicteric
Cardiovascular: S1-S2, Regular Rhythm, Murmur (n) and Rub (n)
Respiratory: Wheeze (n), Crackles (few), Rhonchi (n) and Non-Labored Respirations
GI: Soft, Non Distended and Non Tender
Neurology: Awake, Alert and No Motor Deficits
Skin: Cyanosis (n), Jaundice (n) and Rash (n)
Labs/Micro/Reports
Lab Data
07/23/24 07:02
07/23/24 07:02
Microbiology
07/21/24 12:10 Nasal Swab Influenza Types A & B ([facility]) - Final
Influenza A Positive, NAAT
--- NOTE | 2024-07-23 14:01 | CM ---
Reviewed the chart notes. Patient remains on supplemental O2 @ 3L/min. Referral sent to [facility], accepted based on bed availability. CM continues to be available to patient/family and is monitoring medical plan for needs at discharge.
Plan: Discharge to SNF/rehab prior to transitioning back to home. Precert will be required.
--- NOTE | 2024-07-23 14:10 | PN.CDI ---
CDI
- -
CDI:
Physician Documentation Request
Admit Date: 07/21/24 16:43
Dear Doctor Reena,
07/21 H&P states 'Flu likely superimposed bacterial pna...start Tamiflu, cont empiric Ceftriaxone and Azithromycin'
07/22 hospitalist progress note states 'pneumonia 2/2 influenza'
Please clarify the type of pneumonia you are treating:
Bacterial pneumonia
Pneumonia secondary to flu
Other
Use of terms such as suspected, likely, concern for, or probable (associated with a specific diagnosis that is being evaluated, monitored, or treated as if it exists) are acceptable and can be coded in the inpatient setting, when documented at the
time of discharge.
Thank you,
Carolina Reagan RN, BSN
CDI Specialist
tiger text
Please use your independent medical judgment in providing your response.
[2024-07-23] MEDS: BenGay-Like 1 APPLIC TOPICAL ×3 (14:11→21:21)
[2024-07-23] MEDS: ZITHROMAX INFUSION 250 IV (16:18)
[2024-07-23] MEDS: ROCEPHIN 1000 MG IV (16:19)
[2024-07-23] MEDS: STERILE WATER FOR INJECTION 10 ML IV (16:19)
[2024-07-23] MEDS: SINGULAIR 10 MG PO (17:16)
[2024-07-23] MEDS: LOVENOX 40 MG SC (17:16)
[2024-07-23] MEDS: PULMICORT 0.5 MG INH (19:47)
[2024-07-23] MEDS: MELATONIN 3 MG PO (21:19)
[2024-07-23] MEDS: PEPCID 40 MG PO (21:20)
[2024-07-23] MEDS: ZYRTEC 5 MG PO (21:20)
[2024-07-23] MEDS: XANAX 0.25 MG PO (21:20)
[2024-07-23] MEDS: SEROQUEL 75 MG PO (21:20)
[2024-07-24 03:42] VITALS: BP 107/58
[2024-07-24 06:00] VITALS: BMI 28.0
[2024-07-24] MEDS: PULMICORT 0.5 MG INH ×2 (07:17→19:41)
[2024-07-24] MEDS: DUONEB 3 ML INH ×4 (07:17→19:41)
--- NOTE | 2024-07-24 07:17 | W.PN.HOSP.TC ---
Today's Communication/Plan
-
IV abx switched to PO
cont PT/OT
wean O2 supplementation as tolerated
Pain control
Assessment / Plan
Assessment / Plan
Physical Exam
General: No acute distress appears comfortable at time of evaluation
HEENT: NormoCephalic, Moist mucous membranes, Atraumatic
Respiratory: Clear Non Labored Respirations on 2L nasal cannula supplementation
Cardiac: S1/S2 and Regular Rhythm; No Murmur, Rub or Gallop
GI: Soft, Non Tender, Non Distended and Normal Bowel Sounds; No Organomegaly
Musculoskeletal: No Clubbing, No Cyanosis and No Edema
Neuro: AOx3 conversant coherent
Psych: Calm and Intact Judgment/Insight
79F asthma, bronchiectasis, GERD, hyperlipidemia, HFpEF, SVT s/p ablation and anxiety/depression here with Flu and likely superimposed bacterial pneumonia.
#pneumonia 2/2 influenza
#likely superimposed bacterial pneumonia
WBC 2.9
Covid: Negative
Influenza: A positive
CXR: Small left pleural effusion with associated atelectasis and/or pneumonia.
Chest CT: 1. SEVERE LEFT LOWER LOBE and MODERATE RIGHT LOWER LOBE PNEUMONIA which has increased since 06/12/2024.
2. SEVERE CYLINDRICAL BRONCHIECTASIS in both lower lobes.
3. Mild radiation pneumonitis in the left lung apex.
4. 4.5 mm solid pulmonary nodule in the right upper lobe which appears new from 06/12/2024.
5. Mild mediastinal lymphadenopathy.
6. Moderate calcific atherosclerotic plaque in the coronary arteries.
7. Aberrant right subclavian artery containing severe calcific atherosclerotic plaque.
8. Moderate to large hiatal hernia.
9. Previous left breast lumpectomy.
10. Polycystic liver disease.
11. 1.9 cm left adrenal adenoma.
- Tele admit
- Tamiflu
- cont antibiotics completed 3 days IV ceftriaxone azithromycin, switched to Augmentin planned for total 7 days abx treatment
- supportive care
- Consult PT/OT appreciated
-Pulm eval appreciated
#Left Thigh Pain/Sciatica
CT pelvis, LLE thigh appreciated proximal hamstring tendinopathy likely contributing to pain
Lidocaine patch medial Lt thigh pain, patient however notes no benefit, switched to bengay-like cream QID
Gabapentin 100 mg TID started, patient notes significant improvement in pain since start, cont
#Asthma/Allergies
- continue albuterol HFA, azelastine, Breztri, fluticasone, guaifenesin, levocetirizine and montelukast
#GERD/Hiatal Hernia
- continue lansoprazole and famotidine
#hyperlipidemia
- continue rosuvastatin
#HFpEF
ECHO (01/14/2024): Normal left ventricular size and function. Normal regional wall motion. Mild concentric left ventricular hypertrophy. LV ejection fraction is 60-65%.
Mild tricuspid regurgitation. Estimated pulmonary artery pressure of 30-35 mmHg.
Echolucent mass in the liver noted in prior echo
Compared to the previous echo from May 2022, there is no significant change.
- daily weights
- I & Os
#SVT
s/p Ablation
#Anxiety/Depression
- continue alprazolam, lithium, paroxetine and quetiapine
#Hx Breast Cancer s/p Lumpectomy, Chemo and XRT
#Hx Skin Cancer
PT/OT appreciated SNF rehab patient since improved recommendation now for home health
Code status: Full code
DVT prophylaxis: Lovenox sq
I spent a total of 45 minutes with the patient or on the floor. More than 50% of this time involved counseling and coordination of care.
Anticipated Discharge: 24 - 48 hours
Subjective/Interval History
-
Date of Service: July 24, 2024
no acute distress appears comfortably at this time. LLE pain improved. remains oxygen dependent 2L
Objective Data
-
Labs:
Laboratory Results
07/24/24
06:36
WBC Pending
Hgb Pending
Hct Pending
Plt Count Pending
Sodium Pending
Potassium Pending
Chloride Pending
Carbon Dioxide Pending
BUN Pending
Creatinine Pending
Glucose Pending
Calcium Pending
Vital Signs:
Vital Signs
Temp Pulse Resp BP Pulse Ox
98.2 F 68 17 107/58 97
07/24/24 03:42 07/24/24 03:42 07/24/24 03:42 07/24/24 03:42 07/24/24 03:42
I&O
07/23/24 07/24/24 07/25/24
06:59 06:59 06:59
Intake Total 1680 / 1680 1320 / 1320
Balance 1680 / 1680 1320 / 1320
[2024-07-24 07:46] LABS: Hematocrit 35.1 % (37.0-47.0); Hemoglobin 11.1 g/dL (12.0-16.0); Mean Corp Hgb Conc. 31.6 g/dL (33.0-37.0); Mean Corpuscular Hgb 28.8 pg (27.0-31.0); Mean Corpuscular Volume 91.2 fL (81.0-99.0); Mean Platelet Volume 9.5 fL (7.4-10.4); Platelet Count 221 10^3/uL (130-400); Red Blood Cell Count 3.85 10^6/uL (4.20-5.40); Red Cell Dist. Width 15.1 % (11.5-14.5); White Blood Cell Count 4.8 10^3/uL (4.8-10.8)
[2024-07-24 08:00] VITALS: BP 131/64
[2024-07-24 08:34] LABS: Blood Urea Nitrogen 12 mg/dl (7-17); Calcium 8.7 mg/dl (8.4-10.2); Carbon Dioxide 25 mmol/L (22-30); Chloride 110 mmol/L (98-107); Estimated Creatinine Clearance 78 ml/min; Glucose 89 mg/dl (70-99); Magnesium 2.2 mg/dl (1.6-2.3); Phosphorus 3.4 mg/dl (2.5-4.5); Potassium 4.6 mmol/L (3.5-5.1); Sodium 138 mmol/L (135-145); eGFR > 60.00
[2024-07-24] MEDS: FLORASTOR 250 MG PO (08:44)
[2024-07-24] MEDS: TAMIFLU 75 MG PO ×2 (08:44→20:49)
[2024-07-24] MEDS: BenGay-Like 1 APPLIC TOPICAL ×4 (08:44→22:30)
[2024-07-24] MEDS: FEOSOL 325 MG PO (08:44)
[2024-07-24] MEDS: ESKALITH REGULAR RELEASE 300 MG PO ×2 (08:44→20:48)
[2024-07-24] MEDS: PAXIL 10 MG PO (08:44)
--- NOTE | 2024-07-24 08:44 | W.PN.PUL3 ---
Today's Communication / Plan
-
continue nebulizer regimen
Antibiotics, consider transition to oral regimen, would complete 7-day course
Resume outpatient regimen at time of discharge
PT/OT, ambulate
Outpatient pulmonary follow-up recommended, information left in chart
We will sign off. Please call with questions
Assessment
-
79-year-old female with longstanding history of asthma, interstitial disease with bronchiolitis/bronchiectasis, presents with 1 week of increased pulmonary symptoms found to have influenza A. Also has loose stool but takes stool softener at home.
Has not been on antibiotics recently. We are asked to help with pulmonary process
Acute influenza A
Subjective dyspnea, bronchitis x 1 week
Bilateral patchy pneumonitis per imaging 07/21/2024
History of bronchiolitis/bronchiectasis per imaging
Hospitalized January 2024 with bronchitis
Loose stools/diarrhea for 1 week
Leukopenia
Anemia
Left-sided sciatica, thigh pain
Conditions present prior to admission:
Asthma-moderate persistent, no significant eosinophil elevation
Chronic rhinitis
GERD.
Hiatal hernia.
Skin cancer.
Polycystic liver.
SVT status post ablation.
Anxiety.
Depression.
Breast cancer-lumpectomy/chemo/XRT-2016
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 Right ANNIKA. Cataract-2014
Family history COPD-mother
Family history lung cancer-father
Plan/recommendations
Patient appears to be nontoxic
Chest exam improved with less crackles, rhonchi resolved
Patient with chronic bronchiolitis, bronchiectasis, baseline crackles noted as outpatient
CT imaging with acute worsening
Suspect primary secondary to influenza A
Cannot rule out bacterial infection
Leukopenia noted
Moving forward
Difficult to differentiate between viral and bacterial process but given bronchiectasis, bronchiolitis, agree with empiric antibiotic therapy
Remains on azithromycin/ceftriaxone
Agree with antiviral therapy for now, remains on Tamiflu
Sputum culture negative to date
Note that culture from January 2025 AFB/fungus negative, bacterial negative
Follow-up loose stool/diarrhea, now has not had bowel movement in 36 hours
Patient typically coughs up cough of mucus a day
She does not have vest therapy at home
She may benefit from more aggressive nebulized therapy but for now DuoNebs is adequate 4 times daily
Continue budesonide twice daily
Stop Symbicort/Spiriva while on nebulized DuoNebs. Outpatient regimen includes Breztri
resume outpatient regimen at time of discharge
Acapella device
No indication for systemic steroids at this time
Immunoglobulin studies January 2024 normal, normal IgE
No clear evidence of significant eosinophilia
Pelvic and left lower extremity imaging noted
Patient complaining of left thigh, sciatica pain
May require MRI imaging of lumbar sacral spine. Will be deferred to primary service
Echocardiogram 01/14/2024-EF 60-65%, PA systolic 30-35, no significant change from May 2022
Doubt component of heart failure at this time although patient does describe lower extremity swelling, currently improved
DVT prophylaxis: Remains on enoxaparin
GI prophylaxis: Remains on pantoprazole, takes famotidine/lansoprazole as outpatient
PT/OT, encourage ambulation
Outpatient pulmonary follow-up recommendations left in chart
We will sign off. Please call with questions
Diagnostic Data:
Chest x-ray 04/15/2017-use right subclavian port, no pneumothorax, biapical scarring
Chest x-ray 02/04/2020-NAD
Chest x-ray 10/18/2021-NAD
CXR 11/15/2023: No acute disease. Moderate hiatal hernia, enlarged.
Chest x-ray 01/13/2024-NAD, moderate-sized hiatal hernia
CT chest 07/21/2024: Patchy bronchiolitis, bronchiectasis with mucoid impaction with worsening bibasilar infiltrate. There is a 5 mm right upper lobe nodule which is new
CT chest 12/12/[id number]-bud opacifications throughout bilateral lungs with bibasilar bronchiectasis and mucoid impactions, apparent right subclavian artery and retroesophageal course and mild dilation of proximal subclavian artery, 2.8 cm
low-density lesion right thyroid lobe, moderate hiatal hernia
Lower extremity ultrasound 01/13/2024-no evidence for DVT in lower extremities bilaterally
Echo 05/16/2022: Small LV size. Normal systolic function. EF 63%. Mild concentric LVH.� An incidental finding noted on the subcostal view is that of a large sonolucent mass in the liver that was noted on's CAT scan in 2019
PFT 07/14/2024: FVC 1.81/68%, FEV1 1.36/69%, ratio 75. TLC 3.39/66%, DLCO 44%. This is overall stable
[place] 12/04/23: FVC 1.55/57%, FEV1 1.13/56%, ratio 73%, no significant BD response.� Suggestive of moderate restrictive pattern.
Subjective Data
-
Date of Service:
Date of Service: July 24, 2024
Subjective:
Primary complaint is fatigue. She denies significant shortness of breath, chest pain, nausea, abdominal pain. She has not had a bowel movement. Has mild dry cough. She is ambulating with walker in the room to the bathroom without difficulty
Objective Data
Data Reviewed
Vital Signs / I&O / Oxygen:
Vital Signs
Temp Pulse Resp BP Pulse Ox
97.8 F 78 20 131/64 98
07/24/24 08:00 07/24/24 08:00 07/24/24 08:00 07/24/24 08:00 07/24/24 08:00
Intake and Output
07/23/24 07/24/24 07/25/24
06:59 06:59 06:59
Intake Total 1680 / 1680 1320 / 1320
Balance 1680 / 1680 1320 / 1320
SaO2 98
Nasal Cannula flow liters per 2
minute
Physical Exam
General: Comfortable
HEENT: Normocephalic and Anicteric
Cardiovascular: S1-S2, Regular Rhythm, Murmur (n) and Rub (n)
Respiratory: Wheeze (n), Crackles (Few bibasilar), Rhonchi (n) and Non-Labored Respirations
GI: Soft, Non Distended and Non Tender
Neurology: Awake, Alert and No Motor Deficits
Skin: Cyanosis (n), Jaundice (n) and Rash (n)
Labs/Micro/Reports
Lab Data
07/24/24 06:36
07/24/24 06:36
Microbiology
07/21/24 12:10 Nasal Swab Influenza Types A & B ([facility]) - Final
Influenza A Positive, NAAT
[2024-07-24] MEDS: MUCINEX 600 MG PO ×2 (08:45→20:49)
[2024-07-24] MEDS: THERAGRAN 1 TABLET PO (08:45)
[2024-07-24] MEDS: PROTONIX 40 MG PO (08:45)
[2024-07-24] MEDS: ARIMIDEX 1 MG PO (08:45)
[2024-07-24] MEDS: NEURONTIN 100 MG PO ×3 (08:45→22:28)
[2024-07-24] MEDS: VITAMIN D3 (cholecalciferol) 25 MCG PO (08:45)
[2024-07-24] MEDS: CRESTOR 5 MG PO (08:45)
--- NOTE | 2024-07-24 10:45 | CM ---
Patient seen at bedside
+influenza, remains on supplemental O2 @2L
Referral in [facility] for [facility]F
Will need to obtain ins auth
PLAN: SNF, pending bed availability
[2024-07-24] MEDS: AUGMENTIN 875 MG/125 MG 1 TABLET PO ×2 (11:54→20:48)
[2024-07-24 12:00] VITALS: BP 127/72
[2024-07-24 12:35] VITALS: BP 127/72; PULSE 84; O2SAT 97
[2024-07-24 16:00] VITALS: BP 118/62
[2024-07-24] MEDS: SINGULAIR 10 MG PO (17:33)
[2024-07-24] MEDS: LOVENOX 40 MG SC (17:33)
[2024-07-24] MEDS: PEPCID 40 MG PO (22:28)
[2024-07-24] MEDS: SEROQUEL 75 MG PO (22:28)
[2024-07-24] MEDS: MELATONIN 3 MG PO (22:28)
[2024-07-24] MEDS: ZYRTEC 5 MG PO (22:29)
[2024-07-24] MEDS: XANAX 0.25 MG PO (22:29)
[2024-07-24] MEDS: ROBITUSSIN 200 MG PO (22:38)
[2024-07-24 23:20] VITALS: BP 120/62
[2024-07-25] MEDS: TESSALON PERLES 200 MG PO ×3 (01:56→16:39)
[2024-07-25 05:48] VITALS: BMI 27.8
--- NOTE | 2024-07-25 07:06 | W.PN.HOSP.TC ---
Today's Communication/Plan
-
cont abx
repeat sputum cx
Repeat CXR in AM
Home Oxygen Assessment in AM
zofran prn nausea
PT/OT
Assessment / Plan
Assessment / Plan
Physical Exam
General: No acute distress appears comfortable at time of evaluation
HEENT: NormoCephalic, Moist mucous membranes, Atraumatic
Respiratory: Clear Non Labored Respirations on 2L nasal cannula supplementation
Cardiac: S1/S2 and Regular Rhythm; No Murmur, Rub or Gallop
GI: Soft, Non Tender, Non Distended and Normal Bowel Sounds; No Organomegaly
Musculoskeletal: No Clubbing, No Cyanosis and No Edema
Neuro: somnolent oriented conversant coherent
Psych: Calm and Intact Judgment/Insight
79F asthma, bronchiectasis, GERD, hyperlipidemia, HFpEF, SVT s/p ablation and anxiety/depression here with Flu and likely superimposed bacterial pneumonia.
#pneumonia 2/2 influenza
#likely superimposed bacterial pneumonia
#Acute Hypoxic Respiratory Failure
WBC 2.9
Covid: Negative
Influenza: A positive
CXR: Small left pleural effusion with associated atelectasis and/or pneumonia.
Chest CT: 1. SEVERE LEFT LOWER LOBE and MODERATE RIGHT LOWER LOBE PNEUMONIA which has increased since 06/12/2024.
2. SEVERE CYLINDRICAL BRONCHIECTASIS in both lower lobes.
3. Mild radiation pneumonitis in the left lung apex.
4. 4.5 mm solid pulmonary nodule in the right upper lobe which appears new from 06/12/2024.
5. Mild mediastinal lymphadenopathy.
6. Moderate calcific atherosclerotic plaque in the coronary arteries.
7. Aberrant right subclavian artery containing severe calcific atherosclerotic plaque.
8. Moderate to large hiatal hernia.
9. Previous left breast lumpectomy.
10. Polycystic liver disease.
11. 1.9 cm left adrenal adenoma.
- Tele admit
- Tamiflu
- cont antibiotics completed 3 days IV ceftriaxone azithromycin, switched to Augmentin planned for total 7 days abx treatment
- supportive care
- Consult PT/OT appreciated
-Pulm eval appreciated
-Sputum cx pos for Leila, suspect contaminant, repeat Sputum cx results pending
-wean O2 supplementation as tolerated
-Home Oxygen assessment prior to discharge
#Left Thigh Pain/Sciatica
CT pelvis, LLE thigh appreciated proximal hamstring tendinopathy likely contributing to pain
Lidocaine patch medial Lt thigh pain, patient however notes no benefit, switched to bengay-like cream QID
Gabapentin 100 mg TID started, patient notes significant improvement in pain since start, cont
#Asthma/Allergies
- continue albuterol HFA, azelastine, Breztri, fluticasone, guaifenesin, levocetirizine and montelukast
#GERD/Hiatal Hernia
- continue lansoprazole and famotidine
#hyperlipidemia
- continue rosuvastatin
#HFpEF
ECHO (01/14/2024): Normal left ventricular size and function. Normal regional wall motion. Mild concentric left ventricular hypertrophy. LV ejection fraction is 60-65%.
Mild tricuspid regurgitation. Estimated pulmonary artery pressure of 30-35 mmHg.
Echolucent mass in the liver noted in prior echo
Compared to the previous echo from May 2022, there is no significant change.
- daily weights
- I & Os
#SVT
s/p Ablation
#Anxiety/Depression
- continue alprazolam, lithium, paroxetine and quetiapine
#Hx Breast Cancer s/p Lumpectomy, Chemo and XRT
#Hx Skin Cancer
PT/OT appreciated SNF rehab patient since improved recommendation now for home health
Code status: Full code
DVT prophylaxis: Lovenox sq
Discussed with patient and patient's Elier
I spent a total of 45 minutes with the patient or on the floor. More than 50% of this time involved counseling and coordination of care.
Anticipated Discharge: 24 - 48 hours
Subjective/Interval History
-
Date of Service: July 25, 2024
nauseous this morning reporting general malaise. Later desaturated following physical therapy, required Oxygen supplementation 2L
Objective Data
-
Labs:
Laboratory Results
07/25/24
06:00
WBC Pending
Hgb Pending
Hct Pending
Plt Count Pending
Sodium Pending
Potassium Pending
Chloride Pending
Carbon Dioxide Pending
BUN Pending
Creatinine Pending
Glucose Pending
Calcium Pending
Vital Signs:
Vital Signs
Temp Pulse Resp BP Pulse Ox
97.6 F 85 20 120/62 96
07/24/24 23:20 07/24/24 23:20 07/24/24 23:20 07/24/24 23:20 07/25/24 02:02
I&O
07/24/24 07/25/24 07/26/24
06:59 06:59 06:59
Intake Total 1320 / 1320 1140 / 1140
Output Total 600 / 600
Balance 1320 / 1320 540 / 540
[2024-07-25] MEDS: DUONEB 3 ML INH ×3 (07:14→19:30)
[2024-07-25] MEDS: PULMICORT 0.5 MG INH ×2 (07:14→19:30)
[2024-07-25 07:20] VITALS: BP 130/74
[2024-07-25 07:55] LABS: Hematocrit 35.5 % (37.0-47.0); Hemoglobin 11.4 g/dL (12.0-16.0); Mean Corp Hgb Conc. 32.1 g/dL (33.0-37.0); Mean Corpuscular Volume 90.3 fL (81.0-99.0); Mean Platelet Volume 9.3 fL (7.4-10.4); Platelet Count 247 10^3/uL (130-400); Red Blood Cell Count 3.93 10^6/uL (4.20-5.40); White Blood Cell Count 5.2 10^3/uL (4.8-10.8)
[2024-07-25] MEDS: PAXIL 10 MG PO (07:56)
[2024-07-25] MEDS: CRESTOR 5 MG PO (07:56)
[2024-07-25] MEDS: THERAGRAN 1 TABLET PO (07:56)
[2024-07-25] MEDS: MUCINEX 600 MG PO ×2 (07:56→20:33)
[2024-07-25] MEDS: AUGMENTIN 875 MG/125 MG 1 TABLET PO ×2 (07:56→20:33)
[2024-07-25] MEDS: ESKALITH REGULAR RELEASE 300 MG PO ×2 (07:56→20:33)
[2024-07-25] MEDS: FEOSOL 325 MG PO (07:57)
[2024-07-25] MEDS: ARIMIDEX 1 MG PO (07:57)
[2024-07-25] MEDS: VITAMIN D3 (cholecalciferol) 25 MCG PO (07:57)
[2024-07-25] MEDS: PROTONIX 40 MG PO (07:57)
[2024-07-25] MEDS: TAMIFLU 75 MG PO ×2 (07:57→20:33)
[2024-07-25] MEDS: NEURONTIN 100 MG PO ×3 (07:57→22:42)
[2024-07-25] MEDS: FLORASTOR 250 MG PO (07:58)
[2024-07-25] MEDS: OCEAN, SALINE MIST 1 SPRAYS NASAL (08:06)
[2024-07-25] MEDS: BenGay-Like 1 APPLIC TOPICAL ×3 (08:11→22:42)
[2024-07-25 09:37] LABS: Blood Urea Nitrogen 14 mg/dl (7-17); Carbon Dioxide 24 mmol/L (22-30); Chloride 107 mmol/L (98-107); Estimated Creatinine Clearance 78 ml/min; Glucose 97 mg/dl (70-99); Phosphorus 3.7 mg/dl (2.5-4.5); Potassium 4.6 mmol/L (3.5-5.1); Sodium 138 mmol/L (135-145); eGFR > 60.00
[2024-07-25] MEDS: ZOFRAN 4 MG IV (09:53)
[2024-07-25] MEDS: DUONEB INH (11:20)
[2024-07-25 13:12] VITALS: O2SAT 91
[2024-07-25] MEDS: BenGay-Like TOPICAL ×2 (13:41→17:16)
[2024-07-25 15:15] VITALS: BP 108/60
[2024-07-25] MEDS: LOVENOX 40 MG SC (17:26)
[2024-07-25] MEDS: SINGULAIR 10 MG PO (17:26)
[2024-07-25] MEDS: MELATONIN 3 MG PO (22:42)
[2024-07-25] MEDS: ZYRTEC 5 MG PO (22:43)
[2024-07-25] MEDS: SEROQUEL 75 MG PO (22:43)
[2024-07-25] MEDS: XANAX 0.25 MG PO (22:43)
[2024-07-25] MEDS: PEPCID 40 MG PO (22:43)
[2024-07-25 23:12] VITALS: BP 115/67
[2024-07-26 06:00] VITALS: BMI 27.4
--- NOTE | 2024-07-26 06:40 | W.PN.HOSP.TC ---
Addendum entered and electronically signed by Bernie Valles MD 07/30/24 14:08:
correction acute hypoxia requiring oxygen supplementation not acute hypoxic respiratory failure.
Original Note:
Today's Communication/Plan
-
cont abx
wean O2 as tolerated
Home Oxygen Set up
likely discharge tomorrow w home services if remains stable/continues to improve
Assessment / Plan
Assessment / Plan
Physical Exam
General: No acute distress appears comfortable at time of evaluation
HEENT: NormoCephalic, Moist mucous membranes, Atraumatic
Respiratory: Clear Non Labored Respirations on 2L nasal cannula supplementation
Cardiac: S1/S2 and Regular Rhythm; No Murmur, Rub or Gallop
GI: Soft, Non Tender, Non Distended and Normal Bowel Sounds; No Organomegaly
Musculoskeletal: No Clubbing, No Cyanosis and No Edema
Neuro: somnolent oriented conversant coherent
Psych: Calm and Intact Judgment/Insight
79F asthma, bronchiectasis, GERD, hyperlipidemia, HFpEF, SVT s/p ablation and anxiety/depression here with Flu and likely superimposed bacterial pneumonia.
#pneumonia 2/2 influenza
#likely superimposed bacterial pneumonia
#Acute Hypoxic Respiratory Failure
Covid: Negative
Influenza: A positive
CXR: Small left pleural effusion with associated atelectasis and/or pneumonia.
Chest CT: 1. SEVERE LEFT LOWER LOBE and MODERATE RIGHT LOWER LOBE PNEUMONIA which has increased since 06/12/2024.
2. SEVERE CYLINDRICAL BRONCHIECTASIS in both lower lobes.
3. Mild radiation pneumonitis in the left lung apex.
4. 4.5 mm solid pulmonary nodule in the right upper lobe which appears new from 06/12/2024.
5. Mild mediastinal lymphadenopathy.
6. Moderate calcific atherosclerotic plaque in the coronary arteries.
7. Aberrant right subclavian artery containing severe calcific atherosclerotic plaque.
8. Moderate to large hiatal hernia.
9. Previous left breast lumpectomy.
10. Polycystic liver disease.
11. 1.9 cm left adrenal adenoma.
- Tele admit
- Tamiflu
- cont antibiotics completed 3 days IV ceftriaxone azithromycin, switched to Augmentin planned for total 7 days abx treatment 07/27/24 last day
- supportive care
- Consult PT/OT appreciated
-Pulm eval appreciated
-Sputum cx pos for Leila, likely contaminant
-wean O2 supplementation as tolerated
-scheduled R QID Duoneb completed
Patient is in need of oxygen at 2 liters/minute via nasal cannula continuously due to pulse oximetry of 87% on room air at rest. Oxygen will help to improve hypoxemia. Patient is mobile within the home. DuoNeb therapy has been tried and is
ineffective in treating hypoxemia related symptoms. Oxygen is needed to improve symptoms.
#Left Thigh Pain/Sciatica
#proximal hamstring tendinopathy
CT pelvis, LLE thigh appreciated proximal hamstring tendinopathy likely contributing to pain
Lidocaine patch medial Lt thigh pain, patient however notes no benefit, switched to bengay-like cream QID
Gabapentin 100 mg TID started, patient notes significant improvement in pain since start, cont
#Asthma/Allergies
- continue albuterol HFA, azelastine, Breztri, fluticasone, guaifenesin, levocetirizine and montelukast
#GERD/Hiatal Hernia
- continue lansoprazole and famotidine
#hyperlipidemia
- continue rosuvastatin
#HFpEF
ECHO (01/14/2024): Normal left ventricular size and function. Normal regional wall motion. Mild concentric left ventricular hypertrophy. LV ejection fraction is 60-65%.
Mild tricuspid regurgitation. Estimated pulmonary artery pressure of 30-35 mmHg.
Echolucent mass in the liver noted in prior echo
Compared to the previous echo from May 2022, there is no significant change.
- daily weights
- I & Os
#SVT
s/p Ablation
#Anxiety/Depression
- continue alprazolam, lithium, paroxetine and quetiapine
#Hx Breast Cancer s/p Lumpectomy, Chemo and XRT
#Hx Skin Cancer
PT/OT appreciated SNF rehab patient since improved recommendation now for home health
Code status: Full code
DVT prophylaxis: Lovenox sq
I spent a total of 45 minutes with the patient or on the floor. More than 50% of this time involved counseling and coordination of care.
Anticipated Discharge: Within 24 hours
Subjective/Interval History
-
Date of Service: July 26, 2024
No acute distress sitting up comfortably in chair. reports overall well feeling well. Significant improvement in symptoms including left lower ext pain.
Objective Data
-
Labs:
Laboratory Results
07/26/24
06:00
WBC Pending
Hgb Pending
Hct Pending
Plt Count Pending
Sodium Pending
Potassium Pending
Chloride Pending
Carbon Dioxide Pending
BUN Pending
Creatinine Pending
Glucose Pending
Calcium Pending
Vital Signs:
Vital Signs
Temp Pulse Resp BP Pulse Ox
98.0 F 81 18 115/67 95
07/25/24 23:12 07/25/24 23:12 07/25/24 23:12 07/25/24 23:12 07/25/24 23:12
I&O
07/24/24 07/25/24 07/26/24
06:59 06:59 06:59
Intake Total 1320 / 1320 1140 / 1140 1340 / 1340
Output Total 600 / 600
Balance 1320 / 1320 540 / 540 1340 / 1340
[2024-07-26 07:20] VITALS: BP 107/69
[2024-07-26 07:34] LABS: Hematocrit 35.2 % (37.0-47.0); Hemoglobin 11.2 g/dL (12.0-16.0); Mean Corp Hgb Conc. 31.8 g/dL (33.0-37.0); Mean Corpuscular Hgb 28.8 pg (27.0-31.0); Mean Corpuscular Volume 90.5 fL (81.0-99.0); Mean Platelet Volume 9.2 fL (7.4-10.4); Platelet Count 259 10^3/uL (130-400); Red Blood Cell Count 3.89 10^6/uL (4.20-5.40); Red Cell Dist. Width 14.8 % (11.5-14.5); White Blood Cell Count 5.1 10^3/uL (4.8-10.8)
[2024-07-26] MEDS: DUONEB 3 ML INH ×4 (07:41→19:56)
[2024-07-26] MEDS: PULMICORT 0.5 MG INH ×2 (07:41→19:56)
[2024-07-26 08:10] LABS: Blood Urea Nitrogen 9 mg/dl (7-17); Calcium 8.9 mg/dl (8.4-10.2); Carbon Dioxide 26 mmol/L (22-30); Chloride 109 mmol/L (98-107); Estimated Creatinine Clearance 69 ml/min; Glucose 100 mg/dl (70-99); Magnesium 2.1 mg/dl (1.6-2.3); Phosphorus 3.4 mg/dl (2.5-4.5); Potassium 4.2 mmol/L (3.5-5.1); Sodium 138 mmol/L (135-145); eGFR > 60.00
[2024-07-26] MEDS: TAMIFLU 75 MG PO (08:27)
[2024-07-26] MEDS: PROTONIX 40 MG PO (08:27)
[2024-07-26] MEDS: FEOSOL 325 MG PO (08:27)
[2024-07-26] MEDS: VITAMIN D3 (cholecalciferol) 25 MCG PO (08:27)
[2024-07-26] MEDS: MUCINEX 600 MG PO ×2 (08:28→19:54)
[2024-07-26] MEDS: ARIMIDEX 1 MG PO (08:28)
[2024-07-26] MEDS: ESKALITH REGULAR RELEASE 300 MG PO ×2 (08:28→19:54)
[2024-07-26] MEDS: CRESTOR 5 MG PO (08:28)
[2024-07-26] MEDS: THERAGRAN 1 TABLET PO (08:28)
[2024-07-26] MEDS: NEURONTIN 100 MG PO ×3 (08:28→21:12)
[2024-07-26] MEDS: AUGMENTIN 875 MG/125 MG 1 TABLET PO ×2 (08:28→19:53)
[2024-07-26] MEDS: PAXIL 10 MG PO (08:28)
[2024-07-26] MEDS: FLORASTOR 250 MG PO (08:30)
[2024-07-26] MEDS: BenGay-Like 1 APPLIC TOPICAL ×3 (08:32→21:13)
[2024-07-26] MEDS: BenGay-Like TOPICAL (13:35)
[2024-07-26 15:15] VITALS: BP 113/65
--- NOTE | 2024-07-26 15:31 | CM ---
Met with pt at bedside
PT recommending HH - pt prefers to go home
Requested referral to [facility] - sent in [facility] Port
[facility] will transport home
Plan - home with [facility] - watch for home O2 needs
--- NOTE | 2024-07-26 16:03 | CHAP ---
Chantal was sitting in the chair, in good spirits - she shared thoughts and feelings about her situation. Emotional and spiritual support provided.
[2024-07-26] MEDS: LOVENOX 40 MG SC (17:28)
[2024-07-26] MEDS: SINGULAIR 10 MG PO (17:28)
[2024-07-26] MEDS: MELATONIN 3 MG PO (21:12)
[2024-07-26] MEDS: PEPCID 40 MG PO (21:12)
[2024-07-26] MEDS: ZYRTEC 5 MG PO (21:13)
[2024-07-26] MEDS: XANAX 0.25 MG PO (21:13)
[2024-07-26] MEDS: SEROQUEL 75 MG PO (21:13)
[2024-07-26] MEDS: TESSALON PERLES 200 MG PO (21:13)
[2024-07-26 23:16] VITALS: BP 103/57
--- NOTE | 2024-07-27 04:38 | W.DCSUMMARY ---
Discharge Summary
Discharge Data
Date of Admission: 07/21/24
Date of Discharge: 07/27/24
-
Pending Results: Yes
Additional Pending Results:
sputum culture results
Hospital Course
79F asthma, bronchiectasis, GERD, hyperlipidemia, HFpEF, SVT s/p ablation and anxiety/depression here with Flu, likely superimposed bacterial pneumonia, and associate acute hypoxia requiring oxygen supplementation. CXR appreciated Small left
pleural effusion with associated atelectasis and/or pneumonia.
Chest CT noted : 1. SEVERE LEFT LOWER LOBE and MODERATE RIGHT LOWER LOBE PNEUMONIA which has increased since 06/12/2024.
2. SEVERE CYLINDRICAL BRONCHIECTASIS in both lower lobes.
3. Mild radiation pneumonitis in the left lung apex.
4. 4.5 mm solid pulmonary nodule in the right upper lobe which appears new from 06/12/2024.
5. Mild mediastinal lymphadenopathy.
6. Moderate calcific atherosclerotic plaque in the coronary arteries.
7. Aberrant right subclavian artery containing severe calcific atherosclerotic plaque.
8. Moderate to large hiatal hernia.
9. Previous left breast lumpectomy.
10. Polycystic liver disease.
11. 1.9 cm left adrenal adenoma.
Completed 5 days Tamiflu. Completed 3 days IV ceftriaxone azithromycin, switched to Augmentin planned for total 7 days abx treatment 07/27/24 last day. Pulm eval appreciated. Sputum cx pos for Leila, likely contaminant. Home oxygen assessment
noted need of oxygen at 2 liters/minute via nasal cannula continuously due to pulse oximetry of 87% on room air at rest. Patient also presented with Left Thigh Pain/Sciatica. CT pelvis, LLE thigh appreciated proximal hamstring tendinopathy likely
contributing to pain. Significant improvement in pain noted with start gabapentin and bengay-like cream. Medically stable, patient was discharged home with home services, home oxygen, and outpatient follow up recommendations.
Discharge Plan
-
Patient Disposition: Home with Home Care
Discharge Diagnosis/Procedures: Flu
likely superimposed bacterial pneumonia
Acute Hypoxic Respiratory Failure requiring 2L oxygen supplementation at this time.
Bronchiectasis
4.5 mm solid pulmonary nodule in the right upper lobe
Moderate to large hiatal hernia.
Polycystic liver disease.
1.9 cm left adrenal adenoma.
Left Thigh Pain/Sciatica/proximal hamstring tendinopathy
Asthma
GERD
hyperlipidemia
Heart Failure with Preserved Ejection Fraction
Anxiety/Depression
History Breast Cancer status post Lumpectomy, Chemo, and radiation therapy
History Skin Cancer
Condition: Fair
Diet: Low Cholesterol and 2 Gram Sodium
Activity: As tolerated and With Walker
Driving Restrictions: As prior to admission
Bathing Restrictions: None
Others Tests: repeat CT chest with primary care provider or Pulmonology in 1 month of discharge.
Other Services: PT and OT
Activity Restrictions/Additional Instructions:
Please follow up with primary care provider in 1 week of discharge, orthopedic in 2-4 weeks of discharge, and Pulmonology in 1 month of discharge.
Last dose of Augmentin for treatment pneumonia is this evening 07/27/24
Tessalon perle has been prescribed as needed for cough.
Gabapentin has been prescribed for sciatica/neuropathy
Please take medications as prescribed/recommended and follow up with primary care provider and/or other healthcare provider involved in your care for refills and/or further adjustment to your medication regimen as necessary.
Referrals:
Sangeetha Brunner DO [Family Provider] - in one week
Galindo Johnson MD [Active] - in one month
Loren Weinberg DO [Active] - in one month
()
Prescriptions:
New
Analgesic [place] (m.salic-menth) 15-10 % Cream
1 applic topical QID PRN (Reason: muscle pain) Qty: 85 0RF
benzonatate 100 mg Capsule
200 mg PO TIDPRN PRN (Reason: cough) Qty: 60 0RF
gabapentin 100 mg Capsule
100 mg PO TID Qty: 90 0RF
Continued
fluticasone propionate 1 SPRAY spray,suspension
2 spray intranasal DAILYPRN PRN (Reason: allergies)
Centrum Silver 1 EACH tablet
1 ea PO DAILY
albuterol sulfate [Ventolin HFA] 1 PUFF HFA aerosol inhaler
2 puff inhalation R Q4HPRN PRN (Reason: SOB)
azelastine 1 SPRAY aerosol,spray
2 spray intranasal BID
anastrozole 1 mg Tablet
1 mg PO DAILY
famotidine 40 mg Tablet
40 mg PO HS
montelukast 10 mg Tablet
10 mg PO QPM
rosuvastatin 5 mg Tablet
5 mg PO DAILY
levocetirizine 5 mg Tablet
5 mg PO QPM
Saccharomyces boulardii [Florastor] 250 mg Capsule
250 mg PO DAILY
quetiapine 25 mg Tablet
75 mg PO HS
paroxetine HCl [Paxil] 10 mg Tablet
10 mg PO DAILY
melatonin 3 mg Tablet
3 mg PO HS
lansoprazole 30 mg Capsule,Delayed Release(Dr/Ec)
30 mg PO DAILY
lithium carbonate 300 mg Tablet
300 mg PO BID
cholecalciferol (vitamin D3) [Vitamin D3] 25 mcg (1,000 unit) Tablet
25 mcg PO DAILY
biotin 1 mg Capsule
1 mg PO DAILY
alprazolam [Xanax] 0.25 mg Tablet
0.25 mg PO HS
Breztri Aerosphere 160-9-4.8 mcg/actuation Hfa Aerosol Inhaler
2 inh INHALATION R DAILY
ferrous sulfate 137 mg (45 mg iron) Tablet Extended Release
137 mg PO DAILY
guaifenesin 100 mg/5 mL liquid
200 mg PO QIDPRN PRN (Reason: cough)
acetaminophen 650 mg tablet extended release
650 mg PO Q4HPRN PRN (Reason: mild pain)
Discharge Orders:
Discharge Patient (As Directed); Ordered 07/27/24
Ordered By: Mikey Urias
Discharge Date and Time
Discharge Date/Time: 07/27/24 15:50
Print Language: TURKMEN
[2024-07-27] MEDS: TESSALON PERLES 200 MG PO (05:06)
[2024-07-27 06:00] VITALS: BMI 27.2
[2024-07-27 07:11] VITALS: BP 103/59
[2024-07-27] MEDS: PULMICORT 0.5 MG INH (07:44)
[2024-07-27] MEDS: ARIMIDEX 1 MG PO (08:28)
[2024-07-27] MEDS: PAXIL 10 MG PO (08:28)
[2024-07-27] MEDS: FEOSOL 325 MG PO (08:28)
[2024-07-27 08:29] LABS: Hematocrit 36.4 % (37.0-47.0); Hemoglobin 11.5 g/dL (12.0-16.0); Mean Corp Hgb Conc. 31.6 g/dL (33.0-37.0); Mean Corpuscular Hgb 28.7 pg (27.0-31.0); Mean Corpuscular Volume 90.8 fL (81.0-99.0); Mean Platelet Volume 9.2 fL (7.4-10.4); Platelet Count 295 10^3/uL (130-400); Red Blood Cell Count 4.01 10^6/uL (4.20-5.40); Red Cell Dist. Width 14.6 % (11.5-14.5); White Blood Cell Count 7.4 10^3/uL (4.8-10.8)
[2024-07-27] MEDS: AUGMENTIN 875 MG/125 MG 1 TABLET PO (08:29)
[2024-07-27] MEDS: FLORASTOR 250 MG PO (08:29)
[2024-07-27] MEDS: NEURONTIN 100 MG PO (08:29)
[2024-07-27] MEDS: ESKALITH REGULAR RELEASE 300 MG PO (08:29)
[2024-07-27] MEDS: MUCINEX 600 MG PO (08:29)
[2024-07-27] MEDS: VITAMIN D3 (cholecalciferol) 25 MCG PO (08:29)
[2024-07-27] MEDS: THERAGRAN 1 TABLET PO (08:29)
[2024-07-27] MEDS: PROTONIX 40 MG PO (08:29)
[2024-07-27] MEDS: CRESTOR 5 MG PO (08:29)
[2024-07-27] MEDS: BenGay-Like 1 APPLIC TOPICAL (08:32)
[2024-07-27 08:56] LABS: Blood Urea Nitrogen 13 mg/dl (7-17); Calcium 8.9 mg/dl (8.4-10.2); Carbon Dioxide 26 mmol/L (22-30); Chloride 108 mmol/L (98-107); Estimated Creatinine Clearance 69 ml/min; Glucose 91 mg/dl (70-99); Magnesium 2.3 mg/dl (1.6-2.3); Phosphorus 3.3 mg/dl (2.5-4.5); Potassium 4.5 mmol/L (3.5-5.1); Sodium 138 mmol/L (135-145); eGFR > 60.00
--- NOTE | 2024-07-27 09:20 | VNURNOTE ---
Home health liaison met with patient to discuss [facility] services, visit scheduling/frequency, homebound status and pet policy. Patient understands home visits will be 1-3 times a week to assess and teach medical management. Patient is on oxygen 2
liters with exertion. Oxygen paperwork to be faxed to [facility] by home health liaison. Patient aware a visiting nurse will contact her for start of care within 1-2 days after discharge from . [facility] Referral completed in care port. Spouse German notified
that someone will have to be home today to accept the oxygen delivery.
[2024-07-27 11:39] VITALS: PULSE 89; O2SAT 94
--- NOTE | 2024-07-27 11:47 | CM ---
Met with patient at bedside.
IMM explained & signed. In chart
[facility] referral in careport
[employer] in patient room - await progress note from hospitalist today to fax to Teri @ [facility] to coordinate home delivery.
PLAN: Home with [facility] @ [facility]
to transport
[2024-07-27] MEDS: BenGay-Like TOPICAL (13:00)
[2024-07-27 13:05] VITALS: PULSE 80; O2SAT 93
[2024-07-27 14:58] VITALS: BP 126/70
--- NOTE | 2024-07-27 16:08 | W.PN.UPDATE ---
Update Note
Progress Note Update
Patient's discharge has been delayed due to logistical of home oxygen set up.
Clinical status with no changes over the last 24 hours per
Discharge date 07/27/2024
--- NOTE | 2024-07-27 18:20 | PN.CDI ---
CDI
- -
CDI:
Physician Documentation Request
Admit Date: 07/21/24 16:43
Dear Doctor Reena,
07/25- hospitalist progress note includes a diagnosis of Acute Hypoxic Respiratory Failure.
Per documented vital signs, patient has not exceeded 3 liters of O2.
Recognized standard criteria for respiratory failure includes:
(Source: [facility] Hospitalist Mar 2013)
ABGs (1 or more)
�PO2 <60 or RA SpO2 <91%
�PcO2 >50 and pH <7.35
�pO2 decrease or pcO2 increase by 10 mmHg from baseline if known Symptoms:
�Tachypnea, SOB, dyspnea
�Pallor or cyanosis
�Anxiety or restlessness
�Use of accessory muscles
�Retractions (grunting in newborns)
�Unable to speak in complete sentences
Supplemental O2 requirement of 40% (5LPM) or more Intubation is not required
Based on the above information and the recognized standard for respiratory failure could you please verify this diagnoses is still accurate and reflective of the patient�s condition to ensure quality of the medical record.
Please clarify in the Progress Notes:
�Respiratory failure is/was present and is a clinical diagnosis based on (please include this additional support in the medical record)
�After study respiratory failure has been ruled out
�Other
Use of terms such as suspected, likely, concern for, or probable (associated with a specific diagnosis that is being evaluated, monitored, or treated as if it exists) are acceptable and can be coded in the inpatient setting, when documented at the
time of discharge.
Thank you,
Carolina Reagan RN, BSN
CDI Specialist
tiger text
Please use your independent medical judgment in providing your response.
== END 2024-07-27 15:50 | disposition home health service (06) | DRG 194 ==
LOC: 2 NORTH 16:43
PROVIDERS: Emergency Medicine; Nurse Practitioner Family; ADMITTING PHYSICIAN Internal Medicine; ATTENDING PHYSICIAN Internal Medicine; CONSULT PHYSICIAN Internal Medicine Critical Care Medicine; EMERGENCY PHYSICIAN Emergency Medicine; FAMILY PHYSICIAN Family Medicine
DX: J10.08 Influenza due to other identified influenza virus with other specified pneumonia (principal); I47.10 Supraventricular tachycardia, unspecified; I50.32 Chronic diastolic (congestive) heart failure; Q44.6 Cystic disease of liver; J15.9 Unspecified bacterial pneumonia; E78.00 Pure hypercholesterolemia, unspecified; F32.A Depression, unspecified; F41.9 Anxiety disorder, unspecified; J45.40 Moderate persistent asthma, uncomplicated; J47.0 Bronchiectasis with acute lower respiratory infection; J98.4 Other disorders of lung; M54.32 Sciatica, left side; I11.0 Hypertensive heart disease with heart failure; I25.10 Atherosclerotic heart disease of native coronary artery without angina pectoris; D64.9 Anemia, unspecified; K21.9 Gastro-esophageal reflux disease without esophagitis; K44.9 Diaphragmatic hernia without obstruction or gangrene; R09.02 Hypoxemia; Z79.899 Other long term (current) drug therapy; Z82.5 Family history of asthma and other chronic lower respiratory diseases; Z85.3 Personal history of malignant neoplasm of breast; Z80.1 Family history of malignant neoplasm of trachea, bronchus and lung; Z79.811 Long term (current) use of aromatase inhibitors; Z85.828 Personal history of other malignant neoplasm of skin; Z87.891 Personal history of nicotine dependence; Z92.21 Personal history of antineoplastic chemotherapy; Z92.3 Personal history of irradiation; Z96.652 Presence of left artificial knee joint; Z96.641 Presence of right artificial hip joint; Z20.822 Contact with and (suspected) exposure to COVID-19; Z79.51 Long term (current) use of inhaled steroids
CPT/HCPCS: 71046; 71250; 72192; 73700; 80048; 80053; 83735; 83880; 84100; 84484; 85025; 85027; 85610; 87070; 87205; 87502; 87811; 93005; 94640; 96365; 96375; 97116; 97163; 97167; 97530; 97535; 99285

== ENCOUNTER → 2024-08-25 10:46 | Outpatient (REF) | payer OTHER, SELFPAY | LOC: RAD 10:46 | PROVIDERS: ATTENDING PHYSICIAN Student in an Organized Health Care Education/Training Program | DX: J18.9 Pneumonia, unspecified organism (principal); R91.1 Solitary pulmonary nodule; J47.1 Bronchiectasis with (acute) exacerbation | CPT/HCPCS: 71250 ==

== ENCOUNTER → 2024-10-05 12:59 | Outpatient (REF) | payer OTHER, SELFPAY | LOC: MRI 3T 12:59 | PROVIDERS: ATTENDING PHYSICIAN Physician Assistant; FAMILY PHYSICIAN Family Medicine | DX: M54.16 Radiculopathy, lumbar region (principal) | CPT/HCPCS: 72148 ==

== ENCOUNTER → 2024-11-03 12:12 | Outpatient (REF) | payer OTHER, SELFPAY | LOC: MRI 3T 12:12 | PROVIDERS: ATTENDING PHYSICIAN Internal Medicine Gastroenterology; FAMILY PHYSICIAN Family Medicine | DX: K76.89 Other specified diseases of liver (principal) | CPT/HCPCS: 74183; A9575 ==

== ENCOUNTER → 2025-01-13 11:09 | Outpatient (REF) | payer OTHER, SELFPAY | LOC: RAD 11:09 | PROVIDERS: ATTENDING PHYSICIAN Student in an Organized Health Care Education/Training Program; FAMILY PHYSICIAN Family Medicine | DX: M25.552 Pain in left hip (principal); S79.912A Unspecified injury of left hip, initial encounter | CPT/HCPCS: 73523 ==